=== PATIENT | female | born 1960 | race Caucasian/White ===

== ENCOUNTER → 2019-09-24 16:56 | Outpatient (CLI) | payer OTHER, SELFPAY ==
--- NOTE | 2019-09-24 | DI.RAD.S_ITS ---
PROCEDURE: XR HAND RT MIN 3V INDICATIONS: Pain in right hand TECHNIQUE: 3 views of the hand acquired. COMPARISON: None. FINDINGS: Bones: No fractures or dislocations. Carpal bones are normally aligned. No suspicious bony lesions. Soft tissues: No suspicious soft tissue calcifications. IMPRESSION: No acute osseous abnormality is seen. If symptoms persist, cross-sectional imaging with CT or MRI may be obtained for further evaluation. Dictated by: Jaime Doe M.D. on 09/24/2019 at 17:21 Approved by: Jaime Doe M.D. on 09/24/2019 at 17:23
--- NOTE | 2019-09-24 | DI.MRI.S_ITS ---
PROCEDURE: MR HAND RT WO CON INDICATIONS: Pain in right hand TECHNIQUE: Noncontrast oblique coronal T1 spin echo and T2 fast spin echo with fat saturation, axial and sagittal T2 fast spin echo with fat saturation, through the thumb. COMPARISON: [facility], CR, XR HAND RT MIN 3V, 09/24/2019, 15:58. FINDINGS: Image quality: Excellent. Bones: The visualized osseous structures are normally aligned, without marrow contusions or fractures. There is moderate degeneration at the 1st carpometacarpal joint with cartilage thinning, mild osteophytosis, subchondral edema, and subchondral cystic changes. There is mild periarticular soft tissue edema. A small joint effusion is also noted. There is mild subchondral edema also demonstrated in the 1st metacarpal head at the metacarpophalangeal joint. No suspicious intra-osseous mass lesions. First carpometacarpal joint: On sagittal images, the dorsal radial ligament and posterior oblique ligament appear mildly attenuated in signal but grossly intact. The intermetacarpal ligament between the 1st and 2nd metacarpal bases also appears attenuated signal but grossly intact. On the volar aspect, the deep and superficial layers of the anterior oblique ligament appear grossly intact. First metacarpophalangeal joint: The radial collateral ligament appears intact, along with overlying fibers of the abductor pollicis brevis tendon. The the ulnar collateral ligaments appear intact, along with overlying fibers of the adductor pollicis muscle. The aponeurosis of the adductor pollicis muscle also appears normal. The volar plate appears grossly intact on sagittal images, situated between the radial and ulnar sesamoids. Thenar muscles: The superficial abductor pollicis longus muscle appears within normal limits, with tendon inserting on the radial base of the first proximal phalanx. The opponens pollicis muscle also appears normal, inserting on the first metacarpal shaft. The flexor pollicis brevis muscle appears normal, with tendon inserting on the radial sesamoid and first proximal phalanx. The oblique and transverse heads of the adductor pollicis muscle appear within normal limits. Flexor pollicis longus tendon: The visualized flexor tendons appear intact. The annular pulleys also appear grossly intact. Extensor tendons: The visualized extensor tendons appear intact. Miscellaneous: No ganglion cysts. IMPRESSION: 1. Moderate osteoarthritic changes at the 1st carpometacarpal joint with cartilage thinning, subchondral cystic changes and edema, and osteophytosis. A small joint effusion and periarticular edema are also demonstrated likely representing reactive changes. No discrete bony erosions. 2. Attenuated signal within the ligaments at the 1st carpometacarpal joint likely represent degenerative change. Dictated by: James Chapman M.D. on 09/25/2019 at 11:34 Approved by: James Chapman M.D. on 09/25/2019 at 12:04
== END ==
PROVIDERS: PCP Internal Medicine; Referring Provider Internal Medicine; Visit Provider Internal Medicine
DX: M79.641 Pain in right hand (principal); M25.441 Effusion, right hand
CPT/HCPCS: 73130; 73218

== ENCOUNTER → 2019-10-17 10:43 | Outpatient (CLI) | payer OTHER, SELFPAY ==
[2019-10-18 06:45] LABS: COVID19 Sendout Not Detected (Not Detect)
== END ==
PROVIDERS: PCP Internal Medicine; Visit Provider Nurse Practitioner
DX: Z11.59 Encounter for screening for other viral diseases (principal)
CPT/HCPCS: 87635

== ENCOUNTER → 2020-01-10 09:59 | Outpatient (CLI) | payer OTHER, SELFPAY ==
--- NOTE | 2020-01-10 | DI.MG.S_ITS ---
BILATERAL DIGITAL SCREENING MAMMOGRAM 3D/2D WITH CAD: 01/10/2020 CLINICAL: Routine screening. Comparison is made to exams dated: 10/06/2017 mammogram, 09/02/2016 mammogram, and 12/14/2013 mammogram - outside location. There are scattered fibroglandular elements in both breasts. Current study was also evaluated with a Computer Aided Detection (CAD) system. No significant masses, calcifications, or other findings are seen in either breast. There has been no significant interval change. IMPRESSION: NEGATIVE There is no mammographic evidence of malignancy. A 1 year screening mammogram is recommended. This exam was interpreted at Station ID: [id number]. NOTE: For mammograms, a report in lay terms will be sent to the patient. Approximately 15% of breast malignancies will not be visualized mammographically. In the management of a palpable breast mass, a negative mammogram must not discourage biopsy of a clinically suspicious lesion. Electronically Signed By: Lorna schaefer/herman:01/10/2020 13:10:05 letter sent: Normal Exam ACR BI-RADS Category 1: Negative [id number]
[2020-01-10 12:30] LABS: Add Manual Diff / Slide Review NO; Basophils Absolute Auto 0 /uL (0-100); Basophils Percent Auto 0.9 % (0-2); Eosinophils Absolute Auto 200 /uL (0-450); Eosinophils Percent Auto 4.7 % (2-4); Hematocrit 37.7 % (36-46); Hemoglobin 11.9 g/dL (12.0-16.0); Lymphocytes Absolute Auto 1400 /uL (1100-4500); Lymphocytes Percent Auto 30.9 % (25-40); Mean Corpuscular HGB Conc 31.5 % (30-36); Mean Corpuscular Hemoglobin 29.2 PG (26-34); Mean Corpuscular Volume 92.6 fL (80-100); Monocytes Absolute Auto 300 /uL (0-900); Neutrophils Absolute Auto 2600 /uL (1500-7000); Neutrophils Percent Auto 56.5 % (50-75); Platelet Count 260 X10^3/uL (150-400); Red Blood Cell Count 4.07 X10^6/uL (4.0-5.2); Red Cell Distribution Width 13.9 % (11.6-14.8); White Blood Cell Count 4.6 X10^3/uL (4.5-11.0)
[2020-01-10 12:53] LABS: Alanine Aminotransferase 16 IU/L (<35); Albumin 4.2 g/dL (3.5-5.0); Albumin Globulin Ratio 1.4 (1.0-2.8); Alkaline Phosphatase 69 U/L (38-126); Aspartate Aminotransferase 29 IU/L (14-36); BUN Creatinine Ratio 24.7 (6-22); Bilirubin Total 0.4 mg/dL (0.2-1.3); Blood Urea Nitrogen 23 mg/dL (7-17); C-Reactive Protein Quant 0.6 mg/dL (<1.0); Calcium 8.9 mg/dL (8.4-10.2); Carbon Dioxide 29 mmol/L (22-32); Chloride 106 mmol/L (98-107); Estimated Glomerular Filt Rate > 60.0 mL/min (>60); Globulin 3.1 g/dL (1.7-4.1); Glucose 92 mg/dL (80-110); HEMOLYSIS < 15 (0-50); Potassium 4.3 mmol/L (3.4-5.1); Sodium 141 mmol/L (137-145); Total Protein 7.3 g/dL (6.3-8.2); Uric Acid 4.9 mg/dL (2.5-6.2)
[2020-01-10 12:54] LABS: Rheumatoid Factor < 8.6 IU/mL (<12.0)
[2020-01-10 13:33] LABS: Erythrocyte Sedimentation Rate 13 MM/HR (0-20)
[2020-01-10 16:44] LABS: Vitamin D 25 Hydroxy (D3) 37.4 ng/mL (30.0-100.0)
[2020-01-12 18:37] LABS: CCP Antibodies IgG/IgA 4 units (0-19)
== END ==
PROVIDERS: PCP Internal Medicine; Referring Provider Internal Medicine; Visit Provider Internal Medicine
DX: Z12.31 Encounter for screening mammogram for malignant neoplasm of breast (principal); M85.88 Other specified disorders of bone density and structure, other site; Z78.0 Asymptomatic menopausal state; M18.11 Unilateral primary osteoarthritis of first carpometacarpal joint, right hand; E55.9 Vitamin D deficiency, unspecified; Z90.722 Acquired absence of ovaries, bilateral; Z87.891 Personal history of nicotine dependence
CPT/HCPCS: 36415; 77063; 77067; 77080; 80053; 82306; 84550; 85025; 85651; 86140; 86200; 86430

== ENCOUNTER → 2020-09-28 12:40 | Outpatient (CLI) | payer OTHER, SELFPAY ==
--- NOTE | 2020-09-28 | DI.MRI.S_ITS ---
PROCEDURE: MR KNEE LT WO CON INDICATIONS: Unspecified internal derangement of left knee TECHNIQUE: Noncontrast sagittal PD fast spin echo and T2 fast spin echo with fat saturation, sagittal 3-D FLASH with fat saturation; coronal T1 spin echo and PD fast spin echo with fat saturation, and axial PD fast spin echo with fat saturation through the knee. COMPARISON: [facility], CR, XR KNEE 4+ VIEWS LEFT, 06/24/2020, 13:34. FINDINGS: Image quality: Excellent. Menisci: There is horizontal tear involving the body and posterior horn of the medial meniscus. The lateral meniscus is normal morphology and internal signal. The meniscal root ligaments appear intact. Cruciate ligaments: The anterior and posterior cruciate ligaments appear intact. Medial structures: The medial collateral ligament appears intact. The semimembranosus tendon insertions and meniscocapsular junction appear intact. Visualized portions of the pes anserinus tendons appear normal. No abnormal bursal fluid. Lateral structures: The lateral collateral ligament, long and short heads of the biceps femoris tendon appear intact. The popliteus tendon appears normal. Iliotibial band appears normal. Anterior structures: The quadriceps and patellar tendons appear intact. Patellar alignment is normal. No femoral trochlear dysplasia or ventral trochlear prominence. There is mild edema in the infrapatellar fat pad in the medial aspect. Bones and cartilage: No bone marrow contusions or fractures. There is tricompartmental chondral malacia, most pronounced in the medial femorotibial compartment. There are full-thickness cartilage fissures in the medial femoral condyle and medial facet of patella, likely reactive. Subchondral edema in the medial femoral condyle is seen. Joint space: There is small knee joint fluid. There is a moderate Rosario's cyst. Normal appearing synovial plicae are incidentally noted. IMPRESSION: 1. Horizontal tear of the medial meniscus involving the body and posterior horn. 2. Mild edema in the infrapatellar fat pad, suggesting infrapatellar fat pad impingement. 3. Tricompartmental chondral malacia, most pronounced in the medial femorotibial compartment. There are full thickness cartilage fissures in the medial femoral condyle, as well as the medial patellar facet. 4. Small knee joint effusion. 5. A moderate sized Rosario cyst. Dictated by: Alka Swift M.D. on 09/29/2020 at 8:25 Approved by: Alka Swift M.D. on 09/29/2020 at 11:37
== END ==
PROVIDERS: PCP Internal Medicine; Referring Provider Orthopaedic Surgery Adult Reconstructive Orthopaedic Surgery; Visit Provider Orthopaedic Surgery Adult Reconstructive Orthopaedic Surgery
DX: S83.242A Other tear of medial meniscus, current injury, left knee, initial encounter (principal); M94.262 Chondromalacia, left knee; M71.22 Synovial cyst of popliteal space [Baker], left knee; M25.462 Effusion, left knee
CPT/HCPCS: 73721

== ENCOUNTER → 2020-10-07 13:20 | Outpatient (CLI) | payer OTHER, SELFPAY ==
[2020-10-07 13:55] LABS: Add Manual Diff / Slide Review NO; Basophils Absolute Auto 0 /uL (0-100); Basophils Percent Auto 0.9 % (0-2); Eosinophils Absolute Auto 300 /uL (0-450); Eosinophils Percent Auto 6.8 % (2-4); Hematocrit 35.8 % (36-46); Hemoglobin 11.6 g/dL (12.0-16.0); Lymphocytes Absolute Auto 1800 /uL (1100-4500); Mean Corpuscular HGB Conc 32.5 % (30-36); Mean Corpuscular Hemoglobin 29.8 PG (26-34); Mean Corpuscular Volume 91.7 fL (80-100); Monocytes Absolute Auto 400 /uL (0-900); Monocytes Percent Auto 8.3 % (3-14); Neutrophils Absolute Auto 2300 /uL (1500-7000); Platelet Count 230 X10^3/uL (150-400); Red Cell Distribution Width 14.1 % (11.6-14.8); White Blood Cell Count 4.9 X10^3/uL (4.5-11.0)
== END ==
PROVIDERS: PCP Internal Medicine; Referring Provider Orthopaedic Surgery Adult Reconstructive Orthopaedic Surgery; Visit Provider Orthopaedic Surgery Adult Reconstructive Orthopaedic Surgery
DX: Z01.818 Encounter for other preprocedural examination (principal); Z01.812 Encounter for preprocedural laboratory examination
CPT/HCPCS: 36415; 85025; 93005

== ENCOUNTER → 2021-04-20 13:07 | Outpatient (CLI) | payer OTHER, SELFPAY ==
[2021-04-20 13:28] LABS: Add Manual Diff / Slide Review NO; Basophils Absolute Auto 0 /uL (0-100); Eosinophils Absolute Auto 200 /uL (0-450); Hematocrit 36.1 % (36-46); Hemoglobin 11.8 g/dL (12.0-16.0); Lymphocytes Absolute Auto 1600 /uL (1100-4500); Lymphocytes Percent Auto 33.7 % (25-40); Mean Corpuscular HGB Conc 32.7 % (30-36); Mean Corpuscular Hemoglobin 29.5 PG (26-34); Mean Corpuscular Volume 90.1 fL (80-100); Monocytes Absolute Auto 300 /uL (0-900); Monocytes Percent Auto 6.7 % (3-14); Neutrophils Absolute Auto 2500 /uL (1500-7000); Neutrophils Percent Auto 54.6 % (50-75); Platelet Count 228 X10^3/uL (150-400); Red Blood Cell Count 4.01 X10^6/uL (4.0-5.2); Red Cell Distribution Width 14.1 % (11.6-14.8); White Blood Cell Count 4.6 X10^3/uL (4.5-11.0)
[2021-04-20 13:39] LABS: Hemoglobin A1C% w Est Avg Glu 5.5 % (4.0-6.0)
[2021-04-20 14:03] LABS: BUN Creatinine Ratio 20.4 (6-22); Blood Urea Nitrogen 21 mg/dL (7-17); Calcium 9.3 mg/dL (8.4-10.2); Carbon Dioxide 30 mmol/L (22-32); Chloride 106 mmol/L (98-107); Estimated Glomerular Filt Rate 54.5 mL/min (>60); Glucose 69 mg/dL (80-110); HEMOLYSIS < 15 (0-50); Potassium 4.2 mmol/L (3.4-5.1); Sodium 141 mmol/L (137-145)
[2021-04-20 15:44] LABS: Appearance Urine UA CLEAR; Bilirubin Urine UA NEGATIVE (NEGATIVE); Color Urine UA YELLOW; Glucose Urine UA NEGATIVE (Negative); Ketones Urine UA NEGATIVE (NEGATIVE); Leukocyte Esterase Urine UA TRACE (NEGATIVE); Nitrite Urine UA NEGATIVE (Negative); Occult Blood Urine UA NEGATIVE (Negative); Protein Urine UA NEGATIVE (Negative); Specific Gravity Urine UA 1.015 (1.000-1.035); Urobilinogen Urine UA 0.2 E.U./dL (0.2)
[2021-04-20 16:03] LABS: pH Urine UA 6.5 (4.5-8.0)
[2021-04-20 16:06] LABS: RBC Urine 0-1/HPF (0-5/HPF); Squamous Epithelial Cell Urine 0-1 /HPF (0-5/HPF); WBC Urine 0-1/HPF (0-5/HPF)
[2021-04-20 16:07] LABS: Bacteria Urine None Seen; Culture Indicated Urine Cult Not Indicated
== END ==
PROVIDERS: PCP Internal Medicine; Referring Provider Orthopaedic Surgery; Visit Provider Orthopaedic Surgery
DX: Z01.812 Encounter for preprocedural laboratory examination (principal); R73.9 Hyperglycemia, unspecified; N39.0 Urinary tract infection, site not specified
CPT/HCPCS: 36415; 80048; 81001; 83036; 85025

== ENCOUNTER → 2021-06-02 10:33 | Outpatient (CLI) | payer OTHER, SELFPAY ==
[2021-06-02 11:28] LABS: COVID19 -Nasal RAPID Negative (Negative)
== END ==
PROVIDERS: PCP Internal Medicine; Visit Provider Family Medicine Sleep Medicine
DX: Z20.822 Contact with and (suspected) exposure to COVID-19 (principal)
CPT/HCPCS: 87635; C9803

== ENCOUNTER 2021-06-05 14:58 | Observation (INO) | payer OTHER, SELFPAY ==
[2021-05-27 09:27] VITALS: BMI 25.9
[2021-06-04] VITALS (18 sets, daily range): BP systolic 89–164; BP diastolic 49–84; PULSE 58–84; RESP 12–18; TEMP 35.9–37.3; O2SAT 95–100; BMI 25.9
--- NOTE | 2021-06-04 06:00 | DI.RAD.S_ITS ---
PROCEDURE: XR KNEE LT 1TO2V INDICATIONS: TKA TECHNIQUE: 2 view(s) of the knee acquired. COMPARISON: None. FINDINGS: Bones: Patient is status post knee joint arthroplasty. Hardware components are in expected positions. Visualized bony structures are intact. Soft tissues: Overlying postoperative changes are noted. IMPRESSION: Postop changes from left total knee arthroplasty with anatomic left knee alignment. Dictated by: Jerel Cano M.D. on 06/04/2021 at 14:17 Approved by: Jerel Cano M.D. on 06/04/2021 at 14:17
[2021-06-04] MEDS: VANCOMYCIN 1,000 MG/200 ML PIGGYBACK 200 MG IV (09:55)
[2021-06-04] MEDS: ACETAMINOPHEN 325 MG TABLET 975 MG PO (09:58)
[2021-06-04] MEDS: CELECOXIB 200 MG CAPSULE PO (09:59)
[2021-06-04] MEDS: GABAPENTIN 100 MG CAPSULE PO (10:32)
[2021-06-04] MEDS: MORPHINE ER 15 MG TABLET PO ×2 (10:32→21:20)
[2021-06-04] MEDS: LACTATED RINGERS 1,000 ML 42 ML IV ×2 (11:01→12:55)
--- NOTE | 2021-06-04 11:06 | PM.PREOP ---
Pre-operative Note COVID-19 COVID-19 status: Negative Interval Note History & Physical reviewed/Exam performed by Physician: Yes Changes to H&P: No
--- NOTE | 2021-06-04 11:08 | P.OP_ITS ---
Operative Date/Time/Diagnoses Date of procedure: 06/04/21 Time of procedure: 11:30 Pre-op diagnosis: left knee OA probable early RSD Post-op diagnosis: same Procedure & Clinicians Procedure: Left total knee arthroplasty Same procedure as scheduled: Yes Indications: The patient has had progressively worsening left knee pain with radiographic changes consistent with arthritis. Non-operative management has failed and the patient has requested total knee replacement. The risks, benefits and alternatives to surgery were discussed with the patient prior to proceeding. Risks discussed included, but were not limited to, failure to relieve pain, stiffness, infection, nerve damage, deep venous thrombosis, pulmonary embolism, stroke, coma, heart attack, permanent paralysis and , as well as the potential need for eventual revision of the prosthetic. Surgeon: Amanda Islas Store Lead: Nomi Yarbrough Anesthesia Type: General, Spinal and Peripheral nerve block Operative Notes Findings: Left knee osteoarthritis with articular cartilage full-thickness articular cartilage loss on the medial femoral condyle and trochlear groove, good range of motion instability, adequate bone Closure Type: primary Prosthetic devices, grafts, tissues, transplants, or devices: Islas and nephew size 4 femur, size 3 tibia, 35 x 7-1/2 mm patella, size 10 poly Applied: drain(s) Estimated Blood Loss (mL): 250 Blood products transfused: none Tourniquet time (min): 60 Procedure in detail: The patient was seen in the pre-operative area, where the patient identified the left knee as the operative site and this was marked with my initials. The patient received pre-operative antibiotics, and was taken to the operating room and placed on the operative table in the supine position. After satisfactory anesthesia, a organisation and methods analyst out was performed. The left leg was encircled with a tourniquet about the proximal thigh, and the leg was prepared from the toes to the tourniquet with ChloroPrep in the usual fashion and draped through sterile drapes. The leg was elevated and exsanguinated with Eschmark bandage and the tourniquet inflated to [250] mmHg pressure. The knee was approached through an approximately 18 cm incision centered over the patella and carried into the knee through a medial parapatellar arthrotomy. A portion of the medial and lateral meniscus was resected. Soft tissue was care fully mobilized around the patella the patella was measured with a caliper. Bone was resected from the patella and the patellar height was reconstituted with up an appropriate sized patellar component. A cover was then placed on the patella. A small amount of additional medial and lateral meniscus was resected. The distal femur was cut at 5?. A [+2] cut was used. It looked like an appropriate distal femoral cut and the cut was made without difficulty. An extramedullary guide was used for the tibial cut. 10 mm was resected off the least affected side.The tibia was prepared. The rotation was assessed. The patient was placed in extension residual medial and lateral meniscus as well as any residual bone was carefully resected. [No] additional tibia was resected. Hemostasis was achieved especially posteriorly. Additional local was injected into the posterior capsule. The extension gap was assessed and additional releases for gap balancing were performed as necessary. It was checked with the gap scientific informatics project leader. The femoral component was trial was placed and the notch was finished. The rotation was assessed and the appropriate size femoral guide was placed on the distal femur and finishing cuts were made. There is no evidence of notching. The anterior, posterior and chamfer cuts were then made. The posterior osteophytes and soft tissues were then removed. The posterior capsule was injected with part of a mixture of 60 ml 0.25% Marcaine mixed with 20 ml Exparel for post operative pain control. The remainder of this mixture was injected into the capsule and subcutaneous tissues during cement curing. The tibial and femoral components were then placed and the knee placed through a range of motion. Range of motion was [0-130], with good stability throughout the range. The trials were then removed, and the tibia was finished. The bone was prepared with pulsatile lavage, and dried with a sponge. Cement was applied and the final prosthetics placed. Excess cement was removed during and after cement curing. A brief Betadine soak was performed. After confirming there was no extruded cement posteriorly, the final tibial insert was placed. The knee was copiously irrigated and the tourniquet deflated. Hemostasis was obtained with the Bovie. A drain was placed and brought out superolaterally. The capsule was closed with interrupted nonabsorbable suture. The subcutaneous layer was closed with barbed sutures, and the skin with a running 3-0 V-Lock suture and Surgical glue. An Aquacel Ag dressing was applied and the patient was taken to recovery having tolerated the procedure well. Complications: none Post-operative Condition: stable Disposition: Acute Care Plan for aftercare: The patient will be maintained on a standard total knee replacement protocol with weight bearing as tolerated. The patient will receive aspirin and sequential compression devices for DVT prophylaxis. The patient will be discharged home when safe for the home environment.
--- NOTE | 2021-06-04 11:13 | SUR.PREOP ---
Block start time [1115] . Monitoring initiated and maintained throughout procedure. Oxygen and medications given per anesthesiologist instructions. Patient remained stable throughout procedure, no adverse reactions noted. Block end time [1130].
[2021-06-04] MEDS: TRANEXAMIC ACID 1,000 MG in SODIUM CHLORIDE 0.9% 100 ML 200 ML IV ×2 (12:07→13:19)
--- NOTE | 2021-06-04 12:26 | SUR.OPER ---
Supine on padded OR bed. Pillow under head, arms secured on padded armboards <90 degree abduction. Safety belt across torso. Non-operative leg secured with tape over blanket over lower leg. Operative leg secured in [employer] positioner. Foam padded brace at thigh of operative leg.
[2021-06-04] MEDS: BUPIVACAINE 0.25% (PF) 60 ML, EPINEPHrine 0.3 MG INJ (12:50)
[2021-06-04] MEDS: BUPIVACAINE LIPOSOME 266 MG/20 ML VIAL INJ (13:03)
[2021-06-04] MEDS: MEPERIDINE 50 MG/ML INJ 25 MG IV (14:25)
[2021-06-04] MEDS: LACTATED RINGERS 1,000 ML 100 ML IV ×2 (16:33→18:56)
[2021-06-04] MEDS: HYDROMORPHONE 2 MG TABLET PO (16:43)
--- NOTE | 2021-06-04 16:56 | PC.NURSE ---
Pt arrived at 1447 from PACU Alert/oriented. SpO2 98% RA Aquacell/ alecia wrap Dsg to left knee CDI Med w/Dilaudid 2mg po at 1630 w/fair relief. Pt assisted to chair w/o incidence. IVF LR infusing @ 100cc/hr via pump into left wrist area w/o incidence. Call light w/in reach, bed alarm on for pt safety. Continue w/plan of care.
[2021-06-04] MEDS: CEFAZOLIN 2 GM/20 ML SYRINGE IV (18:54)
[2021-06-04] MEDS: DULOXETINE 30 MG CAPSULE 60 MG PO (21:20)
[2021-06-04] MEDS: ASPIRIN EC 81 MG TABLET PO (21:21)
[2021-06-04] MEDS: DOCUSATE 100 MG CAPSULE PO (21:21)
[2021-06-04] MEDS: TOPIRAMATE 25 MG TABLET PO (21:21)
[2021-06-04] MEDS: ACETAMINOPHEN 325 MG TABLET 650 MG PO (21:21)
[2021-06-04] MEDS: HYDROMORPHONE 0.5 MG INJ 0.2 MG IV (23:16)
[2021-06-04] MEDS: ONDANSETRON 4 MG/2 ML INJ IV (23:16)
[2021-06-05] VITALS: BP 165/96; PULSE 68; RESP 18; TEMP 36.6; O2SAT 100
[2021-06-05] MEDS: HYDROMORPHONE 2 MG TABLET PO ×5 (02:20→18:29)
[2021-06-05] MEDS: CEFAZOLIN 2 GM/20 ML SYRINGE IV (02:21)
[2021-06-05] MEDS: SODIUM CHLORIDE 0.9% FLUSH 10 ML IV ×3 (03:14→21:37)
[2021-06-05 06:00] VITALS: BP 129/79; PULSE 72; RESP 14; TEMP 37.3; O2SAT 96
[2021-06-05 06:10] LABS: Hematocrit 32.3 % (36-46); Hemoglobin 10.7 g/dL (12.0-16.0)
--- NOTE | 2021-06-05 07:51 | PM.PNPO.1 ---
Subjective Subjective Date Patient Seen: 06/05/21 Time Patient Seen: 07:52 Interval history: Patient is complaining of moderate to severe pain in her left knee. She suffers from complex regional pain syndrome and is on baseline long-acting morphine and Dilaudid for breakthrough pain. She notes controlling her pain well in the hospital. She denies any new numbness or tingling, she just has her baseline abnormal sensations. She does complain of some nausea with standing. No lightheadedness or dizziness, no fevers, chills, night sweats. Exam Vital Signs (past 8 hours): - 06/05/21 00:00 06/05/21 06:00 Temperature 97.9 F 99.1 F Pulse Rate 68 72 Respiratory Rate 18 14 Blood Pressure 165/96 H 129/79 Pulse Oximetry 100 96 Oxygen Delivery Method Room Air Oxygen Flow Rate 0 Narrative Exam Narrative: Pleasant 60-year-old female, resting comfortably in her chair, no acute distress. Dressing is clean, dry, intact. Her drain has put out 140 cc yesterday and 100 cc today in the drain site has some serosanguineous drainage on the bandage. Bilateral lower extremity: Motor functions are grossly intact, sensation: She is hypersensitive to touch especially on the right lower extremity as compared to the left. Calves are soft and non tender to palpation. Objective Labs Result Diagrams: 06/05/21 05:40 Labs: Laboratory Results - last 24 hr 06/05/21 05:40 Hgb 10.7 L Hct 32.3 L PFSH Medical History Anesthesia complication Anxiety CRPS (complex regional pain syndrome type I) Easy bruisability Heartburn Miscarriage Surgical History History of arthroscopy of right shoulder History of bunionectomy of right great toe History of hysterectomy Hx of arthroscopy of left knee Hx of dilation and curettage Hx of laminectomy Social History household members: spouse and family Smoking Status: Former smoker alcohol intake: former Assessment & Plan Post-op Postoperative Procedures: Procedures Operation Date: 06/04/21 11:30 Actual Procedure Side Surgeon p Total Knee Arthroplasty Left Amanda Islas MD Postoperative day: 1 Postoperative status narrative: -mobilize with PT. weight-bearing as tolerated with front wheel walker -continue with multimodal pain management. Patient has a history of complex regional pain syndrome. -aspirin 81 mg twice daily x6 weeks for DVT prophylaxis -drain: Checking with Dr. Islas if we are okay to remove drain after PT this morning, or if she would like to take it off suction and placed to gravity? -DC: Home today versus tomorrow. I will recheck on the patient this afternoon Quality VTE Deep Vein Thrombosis/Pulmonary Embolism Present on Admission: No
[2021-06-05] MEDS: TOPIRAMATE 25 MG TABLET PO ×2 (08:44→21:37)
[2021-06-05] MEDS: DOCUSATE 100 MG CAPSULE PO ×2 (08:44→21:37)
[2021-06-05] MEDS: ACETAMINOPHEN 325 MG TABLET 650 MG PO ×3 (08:45→21:36)
[2021-06-05] MEDS: ASPIRIN EC 81 MG TABLET PO ×2 (08:45→21:37)
[2021-06-05] MEDS: DULOXETINE 30 MG CAPSULE 60 MG PO ×2 (08:45→21:36)
[2021-06-05] MEDS: MORPHINE ER 15 MG TABLET PO ×3 (08:45→21:36)
[2021-06-05 08:48] VITALS: BP 110/64; PULSE 84; RESP 18; TEMP 37.7; O2SAT 95
--- NOTE | 2021-06-05 09:31 | PC.NURSE ---
Addendum entered by Savannah Lamb R.N. 06/05/21 18:10: Patient to be medicated shortly, she ate up in the chair and is comfortable and free of nausea at this time. Addendum entered by Savannah Lamb R.N. 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 She had an emesis earlier. Patient will stay another night as she is not feeling well. just went home. Original Note: Patients dressing to her l.knee with aquacel and alecia wrap. She does have some discomfort to that knee. Leg leg is slightly swollen with 1+ edema, not pitting. CMS wnl and ppx2. To give patient some po pain medications as she will be working with physical therapy soon. She has a hemovac that is putting out bloody drainage.
[2021-06-05] MEDS: ONDANSETRON 4 MG ODT PO (10:03)
--- NOTE | 2021-06-05 10:15 | PT.IIE ---
Current Diagnoses Unilateral primary osteoarthritis, left knee (06/04/21) Surgery Performed Operation Date: 06/04/21 11:30 Actual Procedures p Total Knee Arthroplasty(Left) - Amanda Islas MD Medical History (Last Reviewed 06/05/21 @ 07:54 by Leeann Prieto PA-C) Anesthesia complication Anxiety CRPS (complex regional pain syndrome type I) Easy bruisability Heartburn Miscarriage Physical Therapy Inpatient Evaluation/Re-Eval M1 PT/OT-IP Prior Functional Status Start: 06/05/21 12:55 Freq: NEEDED Status: Active Protocol: Document 06/05/21 10:15 AB (Rec: 06/05/21 13:16 AB [id number]) Medical Review Prior Functional Status Medical History Reviewed Yes Communication able to make needs known Mobility and Gait pt stated that she is independent with all mobilities and ambulation without AD Social History Household Members spouse,family Living Arrangements House Number of Floors (Floors) Two Floors Number of Stairs To Enter/Railing? 3 steps L rail to enter pt stays on main level of the house Home Environment High Toilet,Walk in Shower, Built-In Shower Seat Home Equipment Four Wheel Walker,Shower Seat with Backrest,Hand Held Shower ,Grab Bars In Shower Additional Social History Comment pt lives with spouse mau who can assist pt and can be off work to assist pt has an adjustable bed M2 PT-IP Current Condition Start: 06/05/21 12:55 Freq: NEEDED Status: Active Protocol: Document 06/05/21 10:15 AB (Rec: 06/05/21 13:16 AB [id number]) Physical Therapy Current Condition Current Condition Evaluation Date 06/05/21 Treatment Diagnosis s/p L TKA; difficulty in walking Onset Date 06/04/21 M3 PT-IP Subjective Start: 06/05/21 12:55 Freq: NEEDED Status: Active Protocol: Document 06/05/21 10:15 AB (Rec: 06/05/21 13:16 AB [id number]) Subjective Physical Therapy Visit Type Type Initial Evaluation Visit Start Time 10:15 Visit Stop Time 11:06 Total Visit Minutes 51 Number of TAPE RECORDER REPAIRER Visits 0 Physical Therapy Visit Comments Patient Comments pt is agreeable to do PT Therapy Pain Assessment Pain When Pain Assessed At Rest Pain Present Pain Present Pain Reported Location Left Knee Intensity 5 Scale Used increases >10 with mobility Pain Behaviors Crying,Facial Grimacing, Guarding Pain Management Techniques Distraction,Modification of Treatment,Re-positioning, Timing of Activity with Medications M4 PT-IP Mobility and Gait Start: 06/05/21 12:55 Freq: NEEDED Status: Active Protocol: Document 06/05/21 10:15 AB (Rec: 06/05/21 13:16 AB [id number]) PT-Bed Mobility Assessment Supine to Sit Supine to Sit Standby Assistance Sit to Supine Sit to Supine Standby Assistance PT-Transfer Assessment Sit to and From Stand Sit to and from Stand Minimal Assistance,1 Person Assistance,Use of Upper Extremities Equipment Transfer Assistive Device Gait Belt,Front Wheeled Walker Orthotic/Prosthetic Devices or Brace: No Transfers Transfer Destination Bed Transfer Technique ambulated Transfer Ability Level of Assist Minimal Assistance,1 Person Assistance,Use of Upper Extremities Comments Mobility Comments pt sitting on chair and spouse in room. agreed to do PT. BP in sittin/80. completed sit to stand min A and cues and ambulated ~ 5 ft using FWW min A and has to sit down due to c/o increase knee pain and is nauseated. pt sat on EOB. BP checked: 156/76. completed sit<>supine SBA. caregiver training initiated. educated spouse on how to use safety belt and how to assist pt. spouse was ablet o put safety belt on pt and assisted pt with sit to stand from EOB min A and pt ambulated with spouse using FWW min A and cues ~ 10 ft and unable to ambulate farther due to c/o increase pain and nausea. pt sat on chair. pt just wants to rest for now. educated pt to put in resting stations/ chairs for pt to sit on for safety at home and spouse agreed. positioned pt on chair. call light and table placed within reach. caregiver training set up for 130 pm. Gait Assessment Gait Gait Assistance Required: Minimum Assistance Distance (Feet) 15 Able to Maintain Weight Bearing Status Yes During Gait Assistive Devices Assistive Device Gait Belt,Front Wheeled Walker Orthotic/Prosthetic Devices or Brace: No Gait Deviations General Gait Pattern Antalgic,Decreased Stride Length,Decreased Feet Clearance,Step-to Gait Factors Limiting Gait Function Factors Limiting Gait Function Decreased Activity Tolerance, Decreased Strength,Limited Range of Motion,Pain,Poor Balance,Poor Safety Awareness PT-Balance Assessment Sitting Balance and Reactions Static Sitting Balance Ability Good Dynamic Sitting Balance Ability Good Standing Balance and Reactions Static Standing Balance Ability Fair Dynamic Standing Balance Ability Fair Device Used FWW M5 PT-IP Objective Assessments Start: 06/05/21 12:55 Freq: NEEDED Status: Active Protocol: Document 06/05/21 10:15 AB (Rec: 06/05/21 13:16 AB [id number]) Orientation Orientation/Cognition Level of Alertness Alert Orientation Name,Age,Birthday,Month,Date, Year,Day of Week,Place, Situation Language Function Ability No Deficits Noted Safety Awareness Understands Safety Issues Memory Description No Deficits Noted Gross Range of Motion Lower Extremity ROM Assessment Left Impaired Impairments L knee flexion: ~ 50 deg Strength Lower Extremity Strength Assessment Left Impaired Knee 3+/5 Coordination Assessment Gross Coordination Gross Coordination WNL Sensation Assessment Sensation Gross Sensation WNL Muscle Tone Muscle Tone WNL Yes M6 PT-IP Treatment Start: 06/05/21 12:55 Freq: NEEDED Status: Active Protocol: Document 06/05/21 10:15 AB (Rec: 06/05/21 13:16 AB [id number]) Physical Therapy Treatment Education Education Provided Precautions,Weight Bearing Status,Post-Op Packet,Safety M7 PT-IP Assessment and Plan Start: 06/05/21 12:55 Freq: NEEDED Status: Active Protocol: Document 06/05/21 10:15 AB (Rec: 06/05/21 13:16 AB [email or web address]) PT Summary Assessment and Plan Potential Rehabilitation Potential Fair Status of Condition at Evaluation Evolving Summary Impairments Pain,ROM,Strength,Balance, Coordination,Sensation,Tone, Cognition,Bed Mobility, Transfers,Gait,Activity Tolerance Assessment Summary pt requirng min A with ambulation using FWW but unable to ambulate too much due to c/o increase pain. pt with dx complex regional pain sydrome affecting pain management and function. caregiver training initiated but further training is needed and set up for the afternoon at 130 pm. pt also has a 4WW and no FWW but spouse stated that he can get a FWW for pt. will continue to assess progress. pt needs to complete stair climbing training prior to d/c. pt also will need HHPT to improve strength and mobility. Goals Bed Mobility Goal Independent Transfer Goal Independent,Front Wheeled Walker,Four Wheeled Walker Gait Goal Independent,Front Wheel Walker ,Four Wheel Walker Gait Distance 200 Other Goals up/down 3 steps L rail ascending CGA Days to Meet Goals 5 Frequency of Treatment Frequency Of Treatment Twice a Day Treatment Plan Physical Therapy Treatment Plan Bed Mobility Training,Transfer Training,Gait Training, Therapeutic Exercise,Balance Retraining,Post Op Education, Discharge Planning,Hot or Cold Pack,Neuromuscular Re-ed, Coordination Retraining,Manual Therapy Weight Bearing Status Weight Bearing Status Weight Bear as Tolerated Allowed Weight Bearing Amount (enter % LLE WBAT or #) (%) Recommendations To Nursing Amount of Assist Needed 1 Person Assist Discharge Recommendations PT Discharge Recommendations Home with 27/09 Assist Available,Home Health Equipment Needed for Home Before FWW if not safe with 4WW Discharge Transportation Needs at Discharge Private Vehicle
--- NOTE | 2021-06-05 11:19 | CM.DANOTE ---
Addendum entered by PAMELA Gibson 06/05/21 14:18: ADD: Per PT, spouse was able to assist during initial eval and further CG training set up with spouse again around 1300 and per Terrence MARTINO, pt medically stable to d/c later today pending progress with PT. Per RN, pt somewhat nauseous now this afternoon and pt had to lay down, unclear if pt will be stable for d/c home tonight vs tomorrow. BF Original Note: Patient is a 60 yo female who was admitted on 06/04/21 for LTKA. Pt has [employer] for insurance and his PCP is Dr. Cody Strong. EMR was reviewed. Per MD, pt has chronic pain at baseline and tolerated procedure well. Per Terrence MARTINO, pt to work with PT today and then possibly drain to be removed after that towards determining d/c home later today vs tomorrow. Per RN, pt has fair amount of pain and not feeling the best. SW met bedside with pt and spouse and explained role and they confirm they live in [place] and pt is independent at baseline with ADL's. Spouse is pt's DPOA. Spouse works but states he can take a week off from work to help if needed but has today and the weekend off to assess pt's needs after d/c. Pt denies any hx of HH or SNF but confirms she is already established with outpt PT and has an appointment set up for next week already and currently does not anticipate any further needs but still needs to work with PT and does have 3 stairs to enter her home. PT arrived bedside to begin initial eval towards d/c recommendations, SW will follow up with pt after pending recommendations. Plan: SW to follow closely after PT initial eval right now and recommendations to confirm safe plan of home with spouse assist and outpt PT and any further identified needs. PAMELA Gibson Discharge Planning/Care Management CM Discharge Assessment Start: 06/05/21 11:18 Freq: Status: Active Protocol: Document 06/05/21 11:18 BF (Rec: 06/05/21 11:19 [id number]) Discharge Planning Assessment Assigned Center Receptionist PAMELA Puri DPOA/Assigned Designee Name spouse Luis Fernando Contact Information [phone] Advance Directives? No Advance Directives on File No History Provided By Patient,Significant Other, Medical Record Has Patient been admitted in last 30 No days? Prior Living Arrangements House Household Members spouse,family Type of transporation used prior to Drives own vehicle admit Independent with ADL's Yes Is patient alert and oriented? Yes Caregiver for Another No Patient/Family Preference OP PT Therapy Comment Pending PT eval and recommendations Barriers to Discharge No Discharge Plan Home Community Services Physical Therapy Transportation Arrangement Spouse bedside and can transport at d/c Referrals Initiated None needed Additional Comment Pending PT eval Whiteboard Updated in Patient Room with Yes name and ext. # of Center Receptionist Review Status In Process Please Provide Date Initial DC 06/05/21 Assessment Was Performed Next Review Type Continued Stay Review Pre-Anesthesia Assessment Start: 05/27/21 09:27 Freq: Status: Active Protocol: Document 05/27/21 09:27 [facility] (Rec: 05/27/21 10:39 [facility] [id number]) Pre-Anesthesia Assessment Patient Information Reviewed Via Phone Assessment Assessment Completed With Patient Diagnostic Results BMP/CMP,CBC,EKG Comment Labs @ 04/20/21, ECG @ 2020, COVID screen @ Primary Care Provider Anthony Quezada Seen Specialist in Last 12 Months Yes Specialist Seen Orthopedist Primary Language Setswana Miller First Required No Height 166.37 cm Weight 71.668 kg Body Mass Index (BMI) 25.9 Hearing Ability Normal Visual Assist Glasses Dentition Type Teeth, Natural Present,Teeth, Missing Barriers to Learning None Hx Anesthesia Reactions Yes: I've wokenup during surgery, allergies to multiple narcotics. 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 No Does patient have STEWART/SOB No Hx Sleep Apnea No Currently Taking a Beta Vahid No Can You Climb a Flight of Stairs Without Yes SOB Hx Chest Pain No Hx SOB No Hx Syncope or Dizziness No Anti-Coagulant Therapy No Has a Level Vial Marker No Cardiac Testing No Hx Pacemaker/ICD No Pacemaker Rep Required? No Cardiac Clearance Received Not Applicable Diet Type At Home Regular dysphagia No Gastrointestinal Symptoms Constipation Urinary Catheter Present No Hx Urinary Self Catheterization No Diabetes No Patient No Lactating No Hx Drug Resistant Organism No Presence of External or Internal Medical Yes: Left great toe Devices Have you had any close contact with No someone diagnosed with COVID-19? Received a COVID vaccine? Yes: Needs to get booster Received all doses? No Marital Status Lives With spouse,family Prior Living Arrangements House Number of Floors (Floors) Two Floors Support System Parent(s),Spouse Does the Patient Have Assistance After Yes Surgery Patient Discharge Plan Description Return Home Comment Pt advised possible same day surgery Feels Safe in Current Environment Yes Been Physically Hurt or Threatened By a No Person in Current Environment Do you have thoughts of harming yourself None or others? Are you currently considering suicide? No Do you have a plan to hurt yourself or No Plan others? Do You Have Any Spiritual Beliefs That No May Affect Your HC Choices? Do You Have Any Cultural Practices That No May Affect Your HC Choices? Comment Hong Who Can We Speak to About Patient's Care Family, friends Identifying Code for Release of Patient Declines to issue Information Health Care Proxy/Next of Kin Luis Fernando () Health Care Proxy Emergency Contact Name Luis Fernando () Emergency Contact Advance Directives? No Power of Meal Grinder Tender No PAC Instructions Do not shave/clip surgical site,Durable medical equipment ,Medications to take/avoid, Nasal antibiotic,No ETOH/ petroleum product on skin DOS, NPO,Post-op transportation,Pre -surgical wash,Sensory aids, Sturdy shoes/comfortable clothes,Do not bring valuables and remove jewelry
[2021-06-05 12:03] VITALS: BP 133/76; PULSE 72; RESP 18; TEMP 37.3; O2SAT 96
--- NOTE | 2021-06-05 13:46 | P.DS_ITS ---
History of Present Illness History of Present Illness Date Patient Seen: 06/05/21 Time Patient Seen: 13:46 Chief complaint: Left knee pain s/p left TKA Narrative: Please see prior progress note from today Discharge Providers Provider Discharge Date: 06/05/21 Primary care physician: Cody Strong MD Consults: 06/04/21 06:00 Consult to Anesthesiology Routine Comment: Consulting Provider: Anesthesiologist Reason for consultation: Regional block for post operative pain control 06/04/21 16:17 Consult to Discharge Planning Routine Comment: Consult to Physical Therapy Evaluate & Treat Comment: Physician Instructions: postop TKA protocol Consult to Respiratory Therapy Evaluate & Treat Comment: Physician Instructions: Evaluate and treat Discharge provider: Leeann Prieto PA-C Summary Hospital Course Discharge Diagnosis: left knee OA probable early RSD Hospital Course: Operative Date/Time/Diagnoses Date of procedure: 06/04/21 Time of procedure: 11:30 Procedure & Clinicians Procedure: Left total knee arthroplasty Same procedure as scheduled: Yes Indications: The patient has had progressively worsening left knee pain with radiographic changes consistent with arthritis. Non-operative management has failed and the patient has requested total knee replacement. The risks, benefits and alternatives to surgery were discussed with the patient prior to proceeding. Risks discussed included, but were not limited to, failure to relieve pain, stiffness, infection, nerve damage, deep venous thrombosis, pulmonary embolism, stroke, coma, heart attack, permanent paralysis and , as well as the potential need for eventual revision of the prosthetic. Surgeon: Amanda Islas Photo Mask Inspector: Nomi Yarbrough Anesthesia Type: General, Spinal and Peripheral nerve block Operative Notes Findings: Left knee osteoarthritis with articular cartilage full-thickness articular cartilage loss on the medial femoral condyle and trochlear groove, good range of motion instability, adequate bone Closure Type: primary Prosthetic devices, grafts, tissues, transplants, or devices: Islas and nephew size 4 femur, size 3 tibia, 35 x 7-1/2 mm patella, size 10 poly Applied: drain(s) Estimated Blood Loss (mL): 250 Blood products transfused: none Tourniquet time (min): 60 Status at Discharge Cognitive/behavioral status at discharge: oriented Functional status at discharge: uses cane/walker Overall status at discharge: patient is progressing back to baseline Exam Vital Signs (past 8 hours): - 06/05/21 06:00 06/05/21 08:48 06/05/21 12:03 Temperature 99.1 F 99.9 F H 99.1 F Pulse Rate 72 84 72 Respiratory Rate 14 18 18 Blood Pressure 129/79 110/64 133/76 Pulse Oximetry 96 95 96 Oxygen Delivery Method Room Air Oxygen Flow Rate 0 Narrative Exam Narrative: Please see prior note from today Objective Labs Result Diagrams: 06/05/21 05:40 Labs: Laboratory Results - last 24 hr 06/05/21 05:40 Hgb 10.7 L Hct 32.3 L PFSH Medical History Anesthesia complication Anxiety CRPS (complex regional pain syndrome type I) Easy bruisability Heartburn Miscarriage Surgical History History of arthroscopy of right shoulder History of bunionectomy of right great toe History of hysterectomy Hx of arthroscopy of left knee Hx of dilation and curettage Hx of laminectomy Social History household members: spouse and family Smoking Status: Former smoker alcohol intake: former Discharge Assessment & Plan Assessment and Plan Assessment: -stable status post left total knee arthroplasty -history of complex regional pain syndrome Plan of Treatment: -mobilize with PT. Weightbearing as tolerated front wheel walker. -Continue with pain regimen from PCP: [facility] ER 15 mg t.i.d., Dilaudid 2 mg as needed for breakthrough pain. Tylenol and naproxen. -aspirin 81 mg twice daily for DVT prophylaxis -prescription of Zofran for low-grade nausea -DC drain per Dr. Islas -DC home when cleared by PT Discharge Plan Discharge Plan Patient Disposition: Home Discharge orders & Medications Discharge Orders: Discharge (Order); Ordered 06/05/21 Ordered By: Leeann Prieto Prescriptions: New acetaminophen 500 mg capsule 500 mg PO Q4H MDD Max 3000 mg per day PRN (Reason: fever or pain) Qty: 90 0RF aspirin 81 mg Tablet,Delayed Release (Dr/Ec) 81 mg PO BID 42 Days Qty: 84 0RF Rx Instructions: X6 weeks to prevent blood clots docusate sodium 100 mg Capsule 100 mg PO BID PRN (Reason: Constipation from narcotic pain med) Qty: 30 0RF ondansetron 4 mg Tablet,Disintegrating 4 mg PO Q4HR PRN (Reason: Nausea) Qty: 20 0RF Continued topiramate 25 mg Tablet 25 mg PO BID 0RF hydromorphone 2 mg Tablet 2 mg PO TID PRN (Reason: Pain) 0RF morphine 15 mg Tablet Extended Release 15 mg PO TID 0RF duloxetine 60 mg Capsule,Delayed Release(Dr/Ec) 60 mg PO BID 0RF naproxen sodium [Aleve] 220 mg Capsule 440 mg PO QD-TID PRN (Reason: Pain) 0RF Follow up/Referrals: Cody Strong MD [Primary Care Provider] - Amanda Islas MD [Physician] - (10-14 days for postoperative visit) Diet/Activity/Treatments Diet: Diet as Tolerated Other treatments: Medications: -Aspirin 81mg twice daily x6 weeks to prevent blood clots. -OTC Tylenol 500 mg 1 tablet every 4 hours as needed for pain/fever. Max 6 tablets per day. -Naproxen as needed for pain/inflammation. -please continue current pain regimen with Dilaudid for breakthrough pain -Zofran as needed for nausea -As needed medications: -Ducolax and /or MiraLax as needed for constipation from narcotic pain medications. -Pepcid AC as needed for stomach upset (usually from aspirin or ibuprofen). Dressing/Wound care: -Remove the Devon wrap 48 hours after surgery. -Keep Aquacell dressing in place until postoperative follow-up office visit. -Okay to shower. Keep wound out of direct water stream. No soaking or submerging until all the scabs fall off (approximately 6 weeks). -Please call the office if dressing becomes wet, soiled, or saturated. Activities: -Weight-bearing as tolerated. Use front wheeled walker, and progress to cane when safe. -Continue with home exercises as directed by your physical therapist. -Elevate ?toes above the nose if you have significant swelling in your lower leg. (A wedge pillow is easiest.) -Ice your incision as needed for pain/inflammation/swelling. Protect your skin with a folded pillowcase. Follow-up: -Follow-up with your surgeon or PA in the office in 10-14 days after surgery. -Follow-up with your surgeon 6 weeks postoperatively. Call the office if you have chest pain, shortness of breath, significant swelling that will not resolve with elevating, fever over 101?, significantly worsening pain. [facility]: [phone] Skin/Wound/Dressing Care Report to your healthcare provider any signs of infection, such as:: chills, fever, night sweats, unusual drainage and unusual redness Visit Report/Discharge Packet Instructions: DI for Knee Replacement Stand Alone Forms: Surgery Discharge Discharge Data Primary Care Provider: Cody Strong Attending Provider: Amanda Islas VTE Deep Vein Thrombosis/Pulmonary Embolism Present on Admission: No
--- NOTE | 2021-06-05 14:28 | PT.IPTN ---
Current Diagnoses Unilateral primary osteoarthritis, left knee (06/05/21) Surgery Performed Operation Date: 06/04/21 11:30 Actual Procedures p Total Knee Arthroplasty(Left) - Amanda Islas MD Physical Therapy Treatment Note M2 PT-IP Current Condition Start: 06/05/21 12:55 Freq: NEEDED Status: Active Protocol: Document 06/05/21 13:35 SP (Rec: 06/05/21 15:25 SP [id number]) Physical Therapy Current Condition Current Condition Evaluation Date 06/05/21 Treatment Diagnosis s/p L TKA; difficulty in walking Onset Date 06/04/21 M3 PT-IP Subjective Start: 06/05/21 12:55 Freq: NEEDED Status: Active Protocol: Document 06/05/21 13:35 SP (Rec: 06/05/21 15:25 SP [id number]) Subjective Physical Therapy Visit Type Type Treatment Note Visit Start Time 13:35 Visit Stop Time 14:28 Total Visit Minutes 53 Notes in room, completed caregiver training with donning gait belt and providing physical assist required throughtout tx with occasional cues from CEILING CLEANER as needed. Vitals throughout tx: seated in chair: 119/71 HR 84 standin/80 HR 76 post mobility: 137/80 HR 78 with increase nausea not productive and perspiration post toileting and stairs, palor complexion. Number of CEILING CLEANER Visits 1 Physical Therapy Visit Comments Patient Comments pt is agreeable to do PT Patient Goals return home with to assist her. Therapy Pain Assessment Pain When Pain Assessed At Rest Pain Present Pain Present Pain Reported Location Left Knee Intensity 8 Scale Used 9/10 with mobility Description With Movement Pain Behaviors Facial Grimacing,Guarding Pain Management Techniques Distraction,Modification of Treatment,Re-positioning, Timing of Activity with Medications M4 PT-IP Mobility and Gait Start: 06/05/21 12:55 Freq: NEEDED Status: Active Protocol: Document 06/05/21 13:35 SP (Rec: 06/05/21 15:25 SP [id number]) PT-Bed Mobility Assessment Sit to Supine Sit to Supine Standby Assistance PT-Transfer Assessment Sit to and From Stand Sit to and from Stand Contact Guard Assistance, Minimal Assistance,1 Person Assistance,Use of Upper Extremities Equipment Transfer Assistive Device Gait Belt,Front Wheeled Walker Orthotic/Prosthetic Devices or Brace: No Transfers Transfer Destination Bed,Toilet,Wheelchair Transfer Technique ambulated w/ FWW Transfer Ability Level of Assist Minimal Assistance,1 Person Assistance,Use of Upper Extremities Comments Mobility Comments Pt seated in chair when arrived, discussed post op ex: quad set, AP, discussed heel slide but not performed, ed can use gait belt for AAROM. donned gait belt in sitting. Sit>stand CG- 10%A from LLE forward positioning, pushed from chair arms to FWW, gait to bathroom approx 8 ft step to patterning heavy BUE on FWW, slow decreased stride and foot clearance gait, cued LLE knee flexion during swing phase. SPT w/ FWW front toilet, able self undergarment self 1 UE and other UE on FWW w/ Min A stability from at trunk little unsteady, cued reach toilet and other UE on FWW slow descent sit due to no rail support at home, Min A from . Pt voided and completed pericare self in sitting. Sit>Stand Min A w/ FWW, self manage undergarment BUE but unsteady sway Min A for recovery, Cued pt use 1 UE and can assist her if needed and communicate. Gait to sink 10 ft, cued facing for stability CGA, able stand unsupported but abdomen lean on sink. Pt gait to w/c in hallway 10 ft slow step to patterning, improved L knee flexion with cues and heel toe heel strike. Pt reported really nausious needed to sit, CGA-10% A sit in w/c. Reassessed BP 137/80 HR 78 increase from pre mobility. Pt rest in w/c 2 min then requested stairs assessment to proceed. Pt completed stairmgt step to patterning using BUE on L HR (has at home ) CG- 10%A. Pt required stand brief rest at top 3 stairs due to reported feeling sweaty, post stairs stated can't walk anyfurther really nausious. Pt wheeled back to room, SPT w/c >bed w/ FWW CGA, sit>supine SBA using bed rail and RLE hooked under LLE to lift in bed and center self. Discussed post op exercises does and knows them well but not performed. CEILING CLEANER notified nursing BPs taken and pt responses with activity nausious, demonstrated little sweaty and palor complexion with activity and pain continues 9/10 L knee pt stated is different than the constant usually has. will make calls to see if can borrow FWW from DME list provided, CEILING CLEANER contact care mgt may need FWW order, when CEILING CLEANER hears back from soon if need FWW by end day. Pt was able to complete all mobility needed with . Is ok to return home with to assist her when medically cleared. WIll continue to assess progress. Gait Assessment Gait Gait Assistance Required: Minimum Assistance Distance (Feet) 28 Able to Maintain Weight Bearing Status Yes During Gait Assistive Devices Assistive Device Gait Belt,Front Wheeled Walker Orthotic/Prosthetic Devices or Brace: No Gait Deviations General Gait Pattern Antalgic,Decreased Stride Length,Decreased Feet Clearance,Step-to Gait Factors Limiting Gait Function Factors Limiting Gait Function Decreased Activity Tolerance, Decreased Strength,Limited Range of Motion,Pain,Poor Balance,Poor Safety Awareness Comments Gait Comments See mobility for details. Stair Climbing Assessment Evaluation Level of Assist On Stairs Contact Guard Assistance, Minimal Assistance,1 Person Assistance Devices Stair Climbing Assistive Devices Left Railing Technique/Endurance Stair Climbing Direction Ascend and Descend Stair Climbing Technique Step to Step Number of Steps Climbed 3 Stair Climbing Set # Repetitions (reps) 1 Comments Stair Climbing Comments see mobility details. PT-Balance Assessment Sitting Balance and Reactions Static Sitting Balance Ability Good Dynamic Sitting Balance Ability Good Standing Balance and Reactions Static Standing Balance Ability Fair Dynamic Standing Balance Ability Fair Device Used FWW M5 PT-IP Objective Assessments Start: 06/05/21 12:55 Freq: NEEDED Status: Active Protocol: Document 06/05/21 10:15 AB (Rec: 06/05/21 13:16 AB [id number]) Orientation Orientation/Cognition Level of Alertness Alert Orientation Name,Age,Birthday,Month,Date, Year,Day of Week,Place, Situation Language Function Ability No Deficits Noted Safety Awareness Understands Safety Issues Memory Description No Deficits Noted Gross Range of Motion Lower Extremity ROM Assessment Left Impaired Impairments L knee flexion: ~ 50 deg Strength Lower Extremity Strength Assessment Left Impaired Knee 3+/5 Coordination Assessment Gross Coordination Gross Coordination WNL Sensation Assessment Sensation Gross Sensation WNL Muscle Tone Muscle Tone WNL Yes M6 PT-IP Treatment Start: 06/05/21 12:55 Freq: NEEDED Status: Active Protocol: Document 06/05/21 13:35 SP (Rec: 06/05/21 15:25 SP [id number]) Physical Therapy Treatment Exercises Exercises Ankle Pumps,Quad Sets Knee ROM Measurement L knee seated in chair approx 80 deg. Education Education Provided Precautions,Weight Bearing Status,Post-Op Packet,Safety M7 PT-IP Assessment and Plan Start: 06/05/21 12:55 Freq: NEEDED Status: Active Protocol: Document 06/05/21 13:35 SP (Rec: 06/05/21 15:25 SP [id number]) PT Summary Assessment and Plan Potential Rehabilitation Potential Fair Status of Condition at Evaluation Evolving Summary Impairments Pain,ROM,Strength,Balance, Coordination,Sensation,Tone, Bed Mobility,Transfers,Gait, Activity Tolerance Progress Towards Goals Progressing Toward Goals,Slow Progress due to Pain,Slow Progress due to Medical Issues ,Slow Progress due to Activity Tolerance Assessment Summary Pt had elevated pain 9/10 L knee. SIt<>stand, gait and stair mgt CG- Min A with FWW Sit>supine sBA. Pt increased nausea but not productive, experienced bouts of increased perspiration during toileting and stairs, elevated BP, palor complexion concerning duiring activity. CEILING CLEANER notified nursing response to tx. Pt required increase time to complete activity due to pain and decreased strength and activity tolerance, ok to return home when medically cleared. Will continue to assess progress. Pt might need FWW, waitiing to hear from if can borrorw or need to dispense one prior to DC. Goals Bed Mobility Goal Independent Transfer Goal Independent,Front Wheeled Walker,Four Wheeled Walker Gait Goal Independent,Front Wheel Walker ,Four Wheel Walker Gait Distance 200 Other Goals up/down 3 steps L rail ascending CGA Days to Meet Goals 5 Frequency of Treatment Frequency Of Treatment Twice a Day Treatment Plan Physical Therapy Treatment Plan Bed Mobility Training,Transfer Training,Gait Training, Therapeutic Exercise,Balance Retraining,Post Op Education, Discharge Planning,Hot or Cold Pack,Neuromuscular Re-ed, Coordination Retraining,Manual Therapy Other Recommendations and Next Treatment bed mob, post op ex, gait fWW Focus vs 4WW. Weight Bearing Status Weight Bearing Status Weight Bear as Tolerated Allowed Weight Bearing Amount (enter % LLE WBAT or #) (%) Recommendations To Nursing Amount of Assist Needed 1 Person Assist Discharge Recommendations PT Discharge Recommendations Home with / Assist Available,Home Health Equipment Needed for Home Before FWW if not safe with 4WW, Discharge looking if can borrow FWW, if not PT will dispense with order. Transportation Needs at Discharge Private Vehicle
[2021-06-05 15:00] VITALS: BP 123/73; PULSE 73; RESP 18; TEMP 37.3; O2SAT 98
[2021-06-05 20:05] VITALS: BP 123/70; PULSE 73; RESP 16; TEMP 37.3; O2SAT 93
[2021-06-06] MEDS: HYDROMORPHONE 2 MG TABLET PO ×3 (01:19→11:15)
[2021-06-06] MEDS: NAPROXEN 250 MG TABLET 500 MG PO (04:55)
[2021-06-06 04:57] VITALS: BP 127/78; PULSE 75; RESP 16; TEMP 37.3; O2SAT 96
[2021-06-06 09:07] VITALS: BP 124/70; PULSE 73; RESP 16; TEMP 36.8; O2SAT 96
[2021-06-06] MEDS: ASPIRIN EC 81 MG TABLET PO (09:41)
[2021-06-06] MEDS: MORPHINE ER 15 MG TABLET PO (09:41)
[2021-06-06] MEDS: DOCUSATE 100 MG CAPSULE PO (09:41)
[2021-06-06] MEDS: DULOXETINE 30 MG CAPSULE 60 MG PO (09:41)
[2021-06-06] MEDS: TOPIRAMATE 25 MG TABLET PO (09:42)
[2021-06-06] MEDS: ACETAMINOPHEN 325 MG TABLET 650 MG PO (09:42)
--- NOTE | 2021-06-06 10:15 | PT.IPTN ---
Current Diagnoses Unilateral primary osteoarthritis, left knee (06/05/21) Surgery Performed Operation Date: 06/04/21 11:30 Actual Procedures p Total Knee Arthroplasty(Left) - Amanda Islas MD Physical Therapy Treatment Note M2 PT-IP Current Condition Start: 06/05/21 12:55 Freq: NEEDED Status: Active Protocol: Document 06/06/21 09:40 SP (Rec: 06/06/21 11:35 SP [id number]) Physical Therapy Current Condition Current Condition Evaluation Date 06/05/21 Treatment Diagnosis s/p L TKA; difficulty in walking Onset Date 06/04/21 M3 PT-IP Subjective Start: 06/05/21 12:55 Freq: NEEDED Status: Active Protocol: Document 06/06/21 09:40 SP (Rec: 06/06/21 11:35 SP [id number]) Subjective Physical Therapy Visit Type Type Treatment Note Visit Start Time 09:40 Visit Stop Time 10:15 Total Visit Minutes 35 Notes in room, completed caregiver training with donning gait belt and providing physical assist required throughtout tx. Pt denied nausea, sweating this tx. No vitals taken. Number of AUTO ELECTRICIAN Visits 2 Physical Therapy Visit Comments Patient Comments I am so glad I was encourage to stay last night, got good night sleep and feel alot better. Patient Goals return home with to assist her. Therapy Pain Assessment Pain When Pain Assessed At Rest Pain Present Pain Present Pain Reported Location Left Knee Intensity 5 Scale Used 5/10 at rest, 7/10 with mobility Description With Movement Pain Behaviors Facial Grimacing Pain Management Techniques Distraction,Modification of Treatment,Re-positioning, Timing of Activity with Medications M4 PT-IP Mobility and Gait Start: 06/05/21 12:55 Freq: NEEDED Status: Active Protocol: Document 06/06/21 09:40 SP (Rec: 06/06/21 11:35 SP [id number]) PT-Transfer Assessment Sit to and From Stand Sit to and from Stand Standby Assistance,Use of Upper Extremities Equipment Transfer Assistive Device Gait Belt,Front Wheeled Walker Orthotic/Prosthetic Devices or Brace: No Transfers Transfer Destination Chair,Toilet Transfer Technique ambulated w/ FWW Transfer Ability Level of Assist Standby Assistance,Use of Upper Extremities Comments Mobility Comments Instructed post op ex reclined in chair: AP, quad set, heel side AROM approx 90 deg L knee. Assisted chair leg resets down. Pt scooted eEOChair SBA, donned gait belt, sit>stand SBA good push from chair arms to FWW. Gait across room sBA w/ FWW step to patterning, education on L knee flexion swing phase, heel toe during heel strike phase into WB and awareness quad facilitation during midstance phase step over step patterning if can, improved with slow pacing distance across room, slow moving but able to complete 1 lap before stated pain increasing so returned to chair for rest, sBA. 2 min rest, STS gait to bathroom, SPT w/ FWW, Pt self undergarment mgt w/ 1 UE contact on fWW, cued reach back for toilet 1 UE and other on FWW descent to chair, sBA by . self pericare seated, STS cued push from toilet other UE on FWW but AUTO ELECTRICIAN . Stand balance ableto manage undergarment self BUE, SBA by , no LOB. Gait to sink, no UE support wash hands then returned to chair sBA, total distances gait: 30ft, 8 ft, 10 ft, 5 ft. Pt report L knee little unsteady but feels alot better and stable just needs to move slowly. Pt had call light an all needs in reach, notified nurse pt ok to return home with assist her when medically cleared. acquried FWW and stated pt set up with outpt therapy on . Gait Assessment Gait Gait Assistance Required: Standby Assistance Distance (Feet) 30 Able to Maintain Weight Bearing Status Yes During Gait Assistive Devices Assistive Device Gait Belt,Front Wheeled Walker Orthotic/Prosthetic Devices or Brace: No Gait Deviations General Gait Pattern Decreased Stride Length, Decreased Feet Clearance,Step- to Gait Factors Limiting Gait Function Factors Limiting Gait Function Decreased Activity Tolerance, Decreased Strength,Limited Range of Motion,Pain,Poor Safety Awareness Comments Gait Comments See mobility comments for details PT-Balance Assessment Sitting Balance and Reactions Static Sitting Balance Ability Normal Dynamic Sitting Balance Ability Normal Standing Balance and Reactions Static Standing Balance Ability Good Dynamic Standing Balance Ability Good Device Used FWW M5 PT-IP Objective Assessments Start: 06/05/21 12:55 Freq: NEEDED Status: Active Protocol: Document 06/05/21 10:15 AB (Rec: 06/05/21 13:16 AB [id number]) Orientation Orientation/Cognition Level of Alertness Alert Orientation Name,Age,Birthday,Month,Date, Year,Day of Week,Place, Situation Language Function Ability No Deficits Noted Safety Awareness Understands Safety Issues Memory Description No Deficits Noted Gross Range of Motion Lower Extremity ROM Assessment Left Impaired Impairments L knee flexion: ~ 50 deg Strength Lower Extremity Strength Assessment Left Impaired Knee 3+/5 Coordination Assessment Gross Coordination Gross Coordination WNL Sensation Assessment Sensation Gross Sensation WNL Muscle Tone Muscle Tone WNL Yes M6 PT-IP Treatment Start: 06/05/21 12:55 Freq: NEEDED Status: Active Protocol: Document 06/06/21 09:40 SP (Rec: 06/06/21 11:35 SP [id number]) Physical Therapy Treatment Exercises Exercises Ankle Pumps,Quad Sets,Heel Slides,Seated Knee Flexion/ Extension Knee ROM Measurement L knee AROM 90 deg Education Education Provided Precautions,Weight Bearing Status,Safety M7 PT-IP Assessment and Plan Start: 06/05/21 12:55 Freq: NEEDED Status: Active Protocol: Document 06/06/21 09:40 SP (Rec: 06/06/21 11:35 SP [id number]) PT Summary Assessment and Plan Potential Rehabilitation Potential Fair Status of Condition at Evaluation Evolving Summary Impairments Pain,ROM,Strength,Balance, Coordination,Sensation,Tone, Bed Mobility,Transfers,Gait, Activity Tolerance Progress Towards Goals Progressing Toward Goals,Slow Progress due to Pain,Slow Progress due to Activity Tolerance Assessment Summary Pt complete mobility SBA w/ FWW, good demonstration AROM L Knee approx 90d eg, is ok to return home with to assist her when medically cleared, set up with outpt therapy. Goals Bed Mobility Goal Independent Transfer Goal Independent,Front Wheeled Walker,Four Wheeled Walker Gait Goal Independent,Front Wheel Walker ,Four Wheel Walker Gait Distance 200 Other Goals up/down 3 steps L rail ascending CGA Days to Meet Goals 5 Frequency of Treatment Frequency Of Treatment Twice a Day Treatment Plan Physical Therapy Treatment Plan Bed Mobility Training,Transfer Training,Gait Training, Therapeutic Exercise,Balance Retraining,Post Op Education, Discharge Planning,Hot or Cold Pack,Neuromuscular Re-ed, Coordination Retraining,Manual Therapy Other Recommendations and Next Treatment ROM, postop ex, gait further Focus distance w/ FWW. Weight Bearing Status Weight Bearing Status Weight Bear as Tolerated Allowed Weight Bearing Amount (enter % LLE WBAT or #) (%) Recommendations To Nursing Amount of Assist Needed Standby Assistance Discharge Recommendations PT Discharge Recommendations Home with Assistance, Outpatient PT Transportation Needs at Discharge Private Vehicle
--- NOTE | 2021-06-06 15:24 | CM.DPC ---
DCP Discharge Home Per Ortho PA, pt's discharge had been cancelled last night due to orthostatics, but resolved and pt no longer has nausea or dizziness and stable for d/c home today. Per FILM DEVELOPING MACHINE OPERATOR, CG training completed and recommending safe d/c home with spouse assist and outpt PT which pt already has set up and scheduled for next week. Plan: Patient to d/c home today via spouse POV and outpt PT and no further SW needs at this time. PAMELA Gibson
== END 2021-06-06 11:30 | disposition home or self-care (01) ==
LOC: OR 15:06 → AC 15:06
PROVIDERS: Admitting Provider Orthopaedic Surgery; PCP Internal Medicine; Referring Provider Orthopaedic Surgery; Visit Provider Orthopaedic Surgery
PROC: 0SRD0JZ Replacement of Left Knee Joint with Synthetic Substitute, Open Approach (ICD-10-PCS; CPT 27447; principal; 2021-06-04 11:30)
DX: M17.12 Unilateral primary osteoarthritis, left knee (principal); F32.9 Major depressive disorder, single episode, unspecified
CPT/HCPCS: 27447; 64450; 73560; 85014; 85018; 97116; 97162; 97530; C1776; G0378; C1713; C9290; J0171; J0690; J1170; J2175; J2250; J2405; J2704; J3010

== ENCOUNTER → 2022-08-27 13:00 | Outpatient (CLI) | payer OTHER, SELFPAY ==
[2021-06-04 15:09] VITALS: BMI 25.9
--- NOTE | 2022-08-27 | DI.MG.S_ITS ---
BILATERAL DIGITAL SCREENING MAMMOGRAM 3D/2D WITH CAD: 08/27/2022 CLINICAL: Routine screening. Comparison is made to exams dated: 01/10/2020 mammogram - [facility], 10/06/2017 mammogram, and 09/02/2016 mammogram - outside location. There are scattered areas of fibroglandular density in both breasts (category b / 25%-50% glandular tissue). Current study was also evaluated with a Computer Aided Detection (CAD) system. No significant masses, calcifications, or other findings are seen in either breast. There has been no significant interval change. IMPRESSION: NEGATIVE There is no mammographic evidence of malignancy. A 1 year screening mammogram is recommended. Based on the Tyrer Cuzick model (a risk assessment model) the patient's lifetime risk is 5.4% and her 10 year risk is 2.3%. According to the ACR, ACS, and NCCN guidelines, an annual breast MRI exam along with mammogram is recommended if the patient's lifetime risk is 20% or greater. This exam was interpreted at Station ID: [id number]. NOTE: For mammograms, a report in lay terms will be sent to the patient. Approximately 15% of breast malignancies will not be visualized mammographically. In the management of a palpable breast mass, a negative mammogram must not discourage biopsy of a clinically suspicious lesion. Electronically Signed By: Wes concepcion/herman:08/27/2022 17:13:12 copy to: DENISE LEON letter sent: Normal Exam ACR BI-RADS Category 1: Negative [id number]
== END ==
PROVIDERS: PCP Physician Assistant; Referring Provider Physician Assistant; Visit Provider Physician Assistant
DX: Z12.31 Encounter for screening mammogram for malignant neoplasm of breast (principal)
CPT/HCPCS: 77063; 77067

== ENCOUNTER → 2023-03-08 14:11 | Outpatient (CLI) | payer OTHER, SELFPAY ==
[2021-06-04 15:09] VITALS: BMI 25.9
--- NOTE | 2023-03-08 14:15 | DI.RAD.S_ITS ---
Bone Density Report Name: BELLE BOOTH Age: 62 Sex: Female Ethnicity: White Date of : 1960 Indication: osteopenia; Referring Provider: DILSHAD LEA Study: Bone densitometry was performed. Exam Date: March 08, 2023 Accession number: [id number] Bone Density: Region BMD T-score Z-score Classification AP Spine(L1-L4) 0.852 -1.8 -0.1 Osteopenia Femoral Neck (Left) 0.659 -1.7 -0.3 Osteopenia Total Hip (Left) 0.780 -1.3 -0.2 Osteopenia Femoral Neck (Right) 0.675 -1.6 -0.1 Osteopenia Total Hip (Right) 0.798 -1.2 -0.1 Osteopenia Total Hip Mean 0.789 -1.3 -0.2 Osteopenia World Health Organization criteria for BMD impression classify patients as: Normal (T-score at or above -1.0), Osteopenia (T-score between -1.0 and -2.5), or Osteoporosis (T-score at or below -2.5). 10-year Fracture Risk(1): Major Osteoporotic Fracture 9.4% Hip Fracture 1.1% Reported Risk Factors: [place] (), Neck BMD=0.659, BMI=25.3 (1) FRAX(R) Version 3.08. Fracture probability calculated for an untreated patient. Fracture probability may be lower if the patient has received treatment. Previous Exams: -- Region Exam Age BMD T-score BMD Change BMD Change Date g/cm2 vs Baseline vs Previous -- AP Spine (L1-L4) 03/08/2023 62 0.852 -1.8 -0.002 (-0.2%)# -0.002 (-0.2%)# 01/10/2020 59 0.854 -1.8 Total Hip(Left) 03/08/2023 62 0.780 -1.3 -0.018 (-2.3%)# -0.018 (-2.3%)# 01/10/2020 59 0.798 -1.2 Total Hip(Right) 03/08/2023 62 0.798 -1.2 0.013 (1.7%)# 0.013 (1.7%)# 01/10/2020 59 0.785 -1.3 -- *Denotes significance at 95% confidence level, LSC for AP Spine = 0.022 g/cm2, LSC for Total Hip = 0.027 g/cm2 # Denotes dissimilar scan types or analysis methods Impression: The patient has low bone mass, based on the Total Spine T-score. The patient has an estimated ten-year risk of hip fracture of 1.1% and an estimated ten-year risk of major fracture of 9.4%, based on the WHO FRAX algorithm. No significant bone loss was observed. Discussion: BONE DENSITY IS LOW AT ONE OR MORE SKELETAL SITES. This patient's lowest T-score is low at one or more skeletal sites. It meets the World Health Organization's (WHO) criteria for low bone mass (T-score between -1.0 and -2.5). The patient's 10-year risk of fracture as calculated by FRAX is less than the threshold where pharmacological therapy is recommended by the National Osteoporosis Foundation (NOF). However, all treatment decisions require clinical judgment and consideration of individual patient factors, including patient preferences, comorbidities, previous drug use, risk factors not captured in the FRAX model (e.g., frailty, falls, vitamin D deficiency, increased bone turnover, interval significant decline in bone density) and possible under or overestimation of fracture risk by FRAX. The patient should follow a healthful lifestyle (good nutrition with adequate calcium and vitamin D, and appropriate weight-bearing exercise). Follow-Up: Consider repeating this study in 2 to 3 years to reassess this patient's status, or sooner if there is some new clinical indication. Reported by: ANTONETTE CONTRERAS M.D. on 03/08/2023 3:39:00 PM.
[2023-03-08 15:41] LABS: Appearance Urine UA CLEAR; Bilirubin Urine UA NEGATIVE (NEGATIVE); Color Urine UA YELLOW; Glucose Urine UA NEGATIVE (Negative); Ketones Urine UA NEGATIVE (NEGATIVE); Leukocyte Esterase Urine UA NEGATIVE (NEGATIVE); Nitrite Urine UA NEGATIVE (Negative); Occult Blood Urine UA NEGATIVE (Negative); Protein Urine UA NEGATIVE (Negative); Specific Gravity Urine UA >=1.030 (1.000-1.035)
[2023-03-08 15:42] LABS: pH Urine UA 5.5 (4.5-8.0)
[2023-03-08 15:56] LABS: Bacteria Urine Occasional (0-1); Culture Indicated Urine Cult Not Indicated; RBC Urine 0-1/HPF (0-5/HPF); Squamous Epithelial Cell Urine 0-1 /HPF (0-5/HPF); WBC Urine 0-1/HPF (0-5/HPF)
[2023-03-08 16:39] LABS: Hematocrit 37.8 % (36-46); Hemoglobin 12.6 g/dL (12.0-16.0); Mean Corpuscular HGB Conc 33.3 % (30-36); Mean Corpuscular Hemoglobin 29.9 PG (26-34); Mean Corpuscular Volume 89.6 fL (80-100); Platelet Count 272 X10^3/uL (150-400); Red Blood Cell Count 4.21 X10^6/uL (4.0-5.2); Red Cell Distribution Width 14.4 % (11.6-14.8); White Blood Cell Count 4.7 X10^3/uL (4.5-11.0)
[2023-03-08 16:55] LABS: Hemoglobin A1C% w Est Avg Glu 5.6 % (4.0-6.0)
[2023-03-08 16:55] LABS: Alanine Aminotransferase 16 IU/L (<35); Albumin 4.2 g/dL (3.5-5.0); Albumin Globulin Ratio 1.3 (1.0-2.8); Alkaline Phosphatase 71 U/L (38-126); BUN Creatinine Ratio 16.7 (6-22); Bilirubin Total 0.5 mg/dL (0.2-1.3); Blood Urea Nitrogen 12 mg/dL (7-17); Calcium 9.2 mg/dL (8.4-10.2); Carbon Dioxide 30 mmol/L (22-32); Chloride 101 mmol/L (98-107); Cholesterol 192 mg/dL (140-199); Estimated Glomerular Filt Rate > 60 mL/min (>60); Globulin 3.2 g/dL (1.7-4.1); Glucose 99 mg/dL (80-110); HDL Cholesterol 84 mg/dL (40-60); HEMOLYSIS < 15 (0-50); LDL Cholesterol Calculated 90 mg/dL (<100); Sodium 137 mmol/L (137-145); Total Protein 7.4 g/dL (6.3-8.2); Triglycerides 91 mg/dL (35-150)
[2023-03-08 16:57] LABS: HEMOLYSIS < 15 (0-50); Iron 70 ug/dL (37-170)
[2023-03-08 17:04] LABS: Erythrocyte Sedimentation Rate 7 MM/HR (0-20)
[2023-03-08 17:08] LABS: Percent Iron Saturation 24 % (15-50); Total Iron Binding Capacity 296 ug/dL (265-497)
[2023-03-08 17:09] LABS: Transferrin 267 mg/dL (206-381)
[2023-03-08 17:13] LABS: Vitamin D 25 Hydroxy (D3) 41.7 ng/mL (30.0-100.0)
[2023-03-08 17:26] LABS: Ferritin 22 ng/mL (11-264)
[2023-03-08 17:29] LABS: TSH w/ Reflex to FT4 0.72 uIU/mL (0.47-4.68)
[2023-03-08 17:41] LABS: Vitamin B12 244 pg/mL (239-931)
[2023-03-11 16:35] LABS: Aspartate Aminotransferase 30 IU/L (14-36)
== END ==
PROVIDERS: PCP Internal Medicine; Referring Provider Internal Medicine; Visit Provider Internal Medicine
DX: Z01.818 Encounter for other preprocedural examination (principal); Z01.812 Encounter for preprocedural laboratory examination; M85.88 Other specified disorders of bone density and structure, other site; R73.9 Hyperglycemia, unspecified; N39.0 Urinary tract infection, site not specified; D64.9 Anemia, unspecified; E53.8 Deficiency of other specified B group vitamins; E78.2 Mixed hyperlipidemia; E55.9 Vitamin D deficiency, unspecified
CPT/HCPCS: 36415; 77080; 80053; 80061; 81001; 82306; 82607; 82728; 83036; 83540; 83550; 84443; 85027; 85651; 93005

== ENCOUNTER 2023-04-05 08:43 | Day surgery (SDC) | payer OTHER, SELFPAY ==
[2021-06-04 15:09] VITALS: BMI 25.9
[2023-03-29 08:20] VITALS: BMI 25.7
[2023-04-05] VITALS (11 sets, daily range): BP systolic 112–165; BP diastolic 66–95; PULSE 71–101; RESP 12–18; TEMP 36.4–36.7; O2SAT 91–97; BMI 25.8
[2023-04-05] MEDS: LACTATED RINGERS 1,000 ML 42 ML IV (09:07)
[2023-04-05] MEDS: CELECOXIB 200 MG CAPSULE 400 MG PO (09:40)
[2023-04-05] MEDS: VANCOMYCIN 1,000 MG/200 ML PIGGYBACK 200 MG IV (10:04)
[2023-04-05] MEDS: ACETAMINOPHEN 325 MG TABLET 975 MG PO (10:12)
--- NOTE | 2023-04-05 10:30 | DI.RAD.S_ITS ---
PROCEDURE: XR KNEE RT 1TO2V INDICATIONS: TKA TECHNIQUE: 2 views of the knee were acquired. COMPARISON: None available at the time of dictation FINDINGS: Bones: No fractures or dislocations. Total right knee hardware is seen with out evidence of perihardware lucency. Soft tissue swelling of the anterior knee seen with areas of soft tissue air likely postop in nature.Expected alignment is noted. Soft tissues: Soft tissue swelling is likely postop in etiology. IMPRESSION: Expected postop changes of the right knee. Dictated by: Carlos Obrien M.D. on 04/05/2023 at 19:13 Approved by: Carlos Obrien M.D. on 04/05/2023 at 19:17
--- NOTE | 2023-04-05 10:45 | PM.PREOP ---
Pre-operative Note Interval Note History & Physical reviewed/Exam performed by Physician: Yes Changes to H&P: No
--- NOTE | 2023-04-05 10:45 | PM.OP.1 ---
Operative Date/Time/Diagnoses Date of procedure: 04/05/23 Time of procedure: 11:20 Pre-op diagnosis: Right knee osteoarthritis, reflex sympathetic dystrophy Post-op diagnosis: same Procedure & Clinicians Procedure: Right total knee arthroplasty Same procedure as scheduled: Yes Indications: The patient has had progressively worsening right knee pain with radiographic changes consistent with arthritis. Non-operative management has failed and the patient has requested total knee replacement. The risks, benefits and alternatives to surgery were discussed with the patient prior to proceeding. Risks discussed included, but were not limited to, failure to relieve pain, stiffness, infection, nerve damage, deep venous thrombosis, pulmonary embolism, stroke, coma, heart attack, permanent paralysis and , as well as the potential need for eventual revision of the prosthetic. Surgeon: Amanda Islas Ceramic Tile Installer: Nomi Yarbrough Anesthesia Type: General and Spinal Operative Notes Findings: Severe right knee osteoarthritic change, good stability and range motion Closure Type: primary Specimen(s): none sent Prosthetic devices, grafts, tissues, transplants, or devices: [facility] 2 size 5 femur, size 3 tibia, +9 poly, 35 x 7-1/2 mm patella Estimated Blood Loss (mL): 250 Blood products transfused: none Tourniquet time (min): 93 Procedure in detail: The patient was seen in the pre-operative area, where the patient identified the right knee as the operative site and this was marked with my initials. The patient received pre-operative antibiotics, and was taken to the operating room and placed on the operative table in the supine position. After satisfactory anesthesia, a time study engineer out was performed. The right leg was encircled with a tourniquet about the proximal thigh, and the leg was prepared from the toes to the tourniquet with ChloroPrep in the usual fashion and draped through sterile drapes. The leg was elevated and exsanguinated with Eschmark bandage and the tourniquet inflated to [250] mmHg pressure. A PA was used throughout the procedure and was essential for intraoperative retraction and safe implantation of the components. An 18 cm incision was made over the medial aspect of the patellar tendon. Dissection was carried out through skin and subcutaneous tissues. A parapatellar arthrotomy was then performed. The anterior aspect of the meniscus and fat pad were then resected. Osteophytes were carefully resected. To Cori pins were placed in the femur and in the tibia for robotic assisted navigation. The patient was then placed through a range of motion and measurements were taken for stressed and non stressed range of motion of the knee with the plan for robotic assisted resection of the distal femur and proximal tibia. The femur and the tibia were carefully mapped. Plan was taken and carefully improved. There was good balance throughout range of motion with about 1 mm of gap throughout range of motion. A bur was used to resect the femoral bone for the distal femoral cut and the new proximal tibial jig was applied. The 5 in 1 cutting block was applied the rotation was carefully checked. Finishing cuts were made on the femur. There was no evidence of notching. The anterior, posterior and chamfer cuts were then made. The posterior osteophytes and soft tissues were then removed. The posterior capsule was injected with part of a mixture of 60 ml 0.25% Marcaine mixed with 266 mg Exparel was injected throughout the procedure for post operative pain control. The remainder of this mixture was injected into the capsule and subcutaneous tissues during cement curing. The tibial jig was placed on the tibia and was navigated using the Cori robotic assisted system for alignment. The patient was placed in full extension and any residual meniscus or residual bone sirs spurs were carefully resected. It looked like an adequate extension gap. The tibial size was checked. Marcaine was injected. Tibial and femoral components were then placed and the knee placed through a range of motion. Range of motion was [0-130], with good stability throughout the range. There was excellent balance achieved and excellent alignment achieved using robotic navigation. The trials were then removed, and the tibia was finished. The bone was prepared with pulsatile lavage, and dried with a sponge. Cement was applied and the final prosthetics placed. Excess cement was removed during and after cement curing. A brief Betadine soak was performed. After confirming there was no extruded cement posteriorly, the final tibial insert was placed. The knee was copiously irrigated and the tourniquet deflated. Hemostasis was obtained with the Bovie cautery. The capsule was closed with interrupted nonabsorbable suture. The subcutaneous layer was closed with barbed sutures, and the skin with a running 3-0 V-Lock suture and Surgical glue. An Aquacel Ag dressing was applied and the patient was taken to recovery having tolerated the procedure well. Complications: none Post-operative Condition: stable Disposition: Acute Care Plan for aftercare: The patient will be maintained on a standard total knee replacement protocol with weight bearing as tolerated. The patient will receive aspirin and sequential compression devices for DVT prophylaxis. The patient will be discharged home when safe for the home environment.
[2023-04-05] MEDS: CEFAZOLIN 2 GM/100 ML PREMIX 100 ML IV ×2 (11:44→19:44)
[2023-04-05] MEDS: TRANEXAMIC ACID 1,000 MG VIAL 2000 MG INJ (11:47)
[2023-04-05] MEDS: BUPIVACAINE 0.25% (PF) 60 ML, EPINEPHrine 0.3 MG INJ (12:05)
[2023-04-05] MEDS: BUPIVACAINE LIPOSOME 266 MG/20 ML VIAL INJ (12:06)
[2023-04-05] MEDS: MORPHINE ER 15 MG TABLET PO ×2 (14:51→21:06)
[2023-04-05] MEDS: IBUPROFEN 400 MG TABLET PO ×3 (14:52→23:06)
[2023-04-05] MEDS: ACETAMINOPHEN 325 MG TABLET 650 MG PO ×2 (14:52→19:44)
[2023-04-05] MEDS: HYDROMORPHONE 0.5 MG INJ IV ×2 (14:54→19:45)
--- NOTE | 2023-04-05 15:00 | PT.IIE ---
Current Diagnoses Unilateral primary osteoarthritis, right knee (04/05/23) Surgery Performed Operation Date: 04/05/23 10:45 Actual Procedures p Total Knee Arthroplasty - Robot(Right) - Amanda Islas MD Surgical History (Last Updated 03/29/23 @ 08:26 by Delores Lopez RN) History of arthroscopy of right shoulder History of bunionectomy of right great toe History of hysterectomy History of total left knee replacement (06/04/21) Hx of arthroscopy of left knee Hx of dilation and curettage Hx of laminectomy Medical History (Last Updated 02/09/23 @ 13:59 by Jt Santoro MD) Age-related osteoporosis without current pathological fracture Anemia Anesthesia complication Anxiety Chronic, continuous use of opioids CRPS (complex regional pain syndrome type I) CRPS (complex regional pain syndrome) Easy bruisability Fatigue Heartburn Menopausal syndrome Miscarriage Mixed hyperlipidemia Primary osteoarthritis involving multiple joints Vitamin D deficiency Physical Therapy Inpatient Evaluation/Re-Eval M1 PT/OT-IP Prior Functional Status Start: 04/05/23 15:57 Freq: NEEDED Status: Active Protocol: Document 04/05/23 15:00 AB (Rec: 04/05/23 16:10 AB [id number]) Medical Review Prior Functional Status Medical History Reviewed Yes Communication able to make needs known Mobility and Gait pt stated that she was independent with all mobilities and ambulation without AD Social History Household Members spouse,family Living Arrangements House Number of Floors (Floors) Two Floors Number of Stairs To Enter/Railing? pt stays on main level of the house 3 steps L rail ascending to enter the house Home Environment High Toilet,Walk in Shower, Built-In Shower Seat Home Equipment Front Wheel Walker,Shower Seat with Backrest,Hand Held Shower,Grab Bars In Shower Additional Social History Comment pt's spouse Guillermo will be off work to assist pt at home; pt' s mother lives with her but will not be able to assist pt pt has an adjustable bed M2 PT-IP Current Condition Start: 04/05/23 15:57 Freq: NEEDED Status: Active Protocol: Document 04/05/23 15:00 AB (Rec: 04/05/23 16:10 AB [id number]) Physical Therapy Current Condition Current Condition Evaluation Date 04/05/23 Treatment Diagnosis s/p R TKA; difficulty in walking Onset Date 04/05/23 M3 PT-IP Subjective Start: 04/05/23 15:57 Freq: NEEDED Status: Active Protocol: Document 04/05/23 15:00 AB (Rec: 04/05/23 16:10 AB [id number]) Subjective Physical Therapy Visit Type Type Initial Evaluation Visit Start Time 15:00 Visit Stop Time 15:57 Number of [employer] Visits 57 Physical Therapy Visit Comments Patient Comments agreeable to do PT Therapy Pain Assessment Pain When Pain Assessed At Rest Pain Present Pain Present Pain Reported Location Right Knee Intensity 6 Scale Used Numeric (0 - 10) Pain Behaviors Facial Grimacing,Guarding Pain Management Techniques Apply Cold,Distraction, Modification of Treatment,Re- positioning,Timing of Activity with Medications M4 PT-IP Mobility and Gait Start: 04/05/23 15:57 Freq: NEEDED Status: Active Protocol: Document 04/05/23 15:00 AB (Rec: 04/05/23 16:10 AB [id number]) PT-Bed Mobility Assessment Supine to Sit Supine to Sit Standby Assistance Sit to Supine Sit to Supine Standby Assistance PT-Transfer Assessment Sit to and From Stand Sit to and from Stand Minimal Assistance,1 Person Assistance,Use of Upper Extremities Equipment Transfer Assistive Device Gait Belt,Front Wheeled Walker Orthotic/Prosthetic Devices or Brace: No Transfers Transfer Destination Toilet Transfer Technique ambulated Transfer Ability Level of Assist Contact Guard Assistance, Minimal Assistance,1 Person Assistance,Use of Upper Extremities Comments Mobility Comments pt supine in bed. spouse in room. obtained PLOF and home set up from pt. pt agreed to do PT. BP in supine: 121/73. O2 sat at RA: 90-94%. pt completed RLE heel slides prior to mobility. pt requesting to use the toilet. completed supine to sit SBa with HOB elevated to ~ 40 deg. pt has an adjustable bed at home. pt was able to sit on EOB SBA. c /o slight dizziness with initial sitting. BP checked: 120/73. pt completed sit to stand min A and ambulated to the toilet using FWW min A and cues for steadiness. completed toileting SBA. completed sit to stand using grab bar CGA and ambulated back to bed using FWW CGA to min A and cues. pt requested to go back to bed. completed sit to supine SBA. positioned pt in bed. call light and table placed within reach. ice packs provided. caregiver training set up with spouse: ~1015am Gait Assessment Gait Gait Assistance Required: Contact Guard Assist,Minimum Assistance Distance (Feet) 12 Able to Maintain Weight Bearing Status Yes During Gait Assistive Devices Assistive Device Gait Belt,Front Wheeled Walker Orthotic/Prosthetic Devices or Brace: No Gait Deviations General Gait Pattern Antalgic,Decreased Feet Clearance,Step-to Gait Factors Limiting Gait Function Factors Limiting Gait Function Decreased Activity Tolerance, Decreased Strength,Limited Range of Motion,Pain,Poor Balance,Poor Safety Awareness PT-Balance Assessment Sitting Balance and Reactions Static Sitting Balance Ability Good Dynamic Sitting Balance Ability Good Standing Balance and Reactions Static Standing Balance Ability Fair Dynamic Standing Balance Ability Fair Device Used FWW M5 PT-IP Objective Assessments Start: 04/05/23 15:57 Freq: NEEDED Status: Active Protocol: Document 04/05/23 15:00 AB (Rec: 04/05/23 16:10 AB [id number]) Orientation Orientation/Cognition Level of Alertness Alert Orientation Name,Place,Situation Language Function Ability No Deficits Noted Safety Awareness Decreased Safety Awareness Memory Description No Deficits Noted Gross Range of Motion Lower Extremity ROM Assessment Right Impaired Impairments R knee flexion: ~ 60 deg : increase guarding and c/o increase pain with movement Strength Lower Extremity Strength Assessment Right Impaired Hip 4-/5 Knee 4-/5 Coordination Assessment Gross Coordination Gross Coordination WNL Sensation Assessment Sensation Gross Sensation WNL Muscle Tone Muscle Tone WNL Yes M6 PT-IP Treatment Start: 04/05/23 15:57 Freq: NEEDED Status: Active Protocol: Document 04/05/23 15:00 AB (Rec: 04/05/23 16:10 [id number]) Physical Therapy Treatment Education Education Provided Precautions,Weight Bearing Status,Post-Op Packet,Safety M7 PT-IP Assessment and Plan Start: 04/05/23 15:57 Freq: NEEDED Status: Active Protocol: Document 04/05/23 15:00 AB (Rec: 04/05/23 16:10 AB [id number]) PT Summary Assessment and Plan Potential Rehabilitation Potential Good Status of Condition at Evaluation Evolving Summary Impairments Pain,ROM,Strength,Balance, Coordination,Sensation,Tone, Cognition,Bed Mobility, Transfers,Gait,Activity Tolerance Assessment Summary pt is a 62 y/o F s/p R TKA POD 0. pt is WBAT on RLE. pt requiring CGA to min A with mobility using FWW but unable to tolerate much activity due to c/o increase pain and feeling tired. pt plans to go home with spouse to assist. Pt will likely progress with mobility during hospital stay. caregiver training set up for tomorrow at ~ 1015 am. will continue to assess. pt stated that she has outpt PT set up already. Goals Bed Mobility Goal Independent Transfer Goal Independent,Front Wheeled Walker Gait Goal Independent,Front Wheel Walker Gait Distance 250 Other Goals improve transfers and ambulation using LRAD >300 ft mod I up/down 3 steps L rail ascending SBA Days to Meet Goals 5 Frequency of Treatment Frequency Of Treatment Twice a Day Treatment Plan Physical Therapy Treatment Plan Bed Mobility Training,Transfer Training,Gait Training, Therapeutic Exercise,Balance Retraining,Post Op Education, Discharge Planning,Hot or Cold Pack,Neuromuscular Re-ed, Coordination Retraining,Manual Therapy Weight Bearing Status Weight Bearing Status Weight Bear as Tolerated Allowed Weight Bearing Amount (enter % RLE WBAT or #) (%) Recommendations To Nursing Amount of Assist Needed 1 Person Assist Discharge Recommendations PT Discharge Recommendations Home with Assistance, Outpatient PT Transportation Needs at Discharge Private Vehicle
[2023-04-05] MEDS: LACTATED RINGERS 1,000 ML 100 ML IV (15:04)
[2023-04-05] MEDS: HYDROMORPHONE 2 MG TABLET PO ×2 (16:19→23:06)
[2023-04-05] MEDS: DULOXETINE 30 MG CAPSULE 60 MG PO (21:06)
[2023-04-05] MEDS: DOCUSATE 100 MG CAPSULE PO (21:06)
[2023-04-05] MEDS: ASPIRIN EC 81 MG TABLET PO (21:06)
[2023-04-06] MEDS: ACETAMINOPHEN 325 MG TABLET 650 MG PO ×2 (01:40→08:49)
[2023-04-06] MEDS: IBUPROFEN 400 MG TABLET PO ×3 (01:40→10:23)
[2023-04-06 01:49] VITALS: BP 121/73; PULSE 60; RESP 16; TEMP 37.1; O2SAT 95
[2023-04-06 04:37] LABS: Hematocrit 32.9 % (36-46); Hemoglobin 10.8 g/dL (12.0-16.0)
[2023-04-06] MEDS: CEFAZOLIN 2 GM/100 ML PREMIX 100 ML IV (05:03)
[2023-04-06] MEDS: HYDROMORPHONE 2 MG TABLET PO (05:03)
[2023-04-06 08:42] VITALS: BP 134/63; PULSE 56; RESP 18; TEMP 36.7; O2SAT 98
[2023-04-06] MEDS: estradioL 1 MG TABLET PO (08:49)
[2023-04-06] MEDS: ASPIRIN EC 81 MG TABLET PO (08:49)
[2023-04-06] MEDS: DOCUSATE 100 MG CAPSULE PO (08:49)
[2023-04-06] MEDS: MORPHINE ER 15 MG TABLET PO (08:49)
[2023-04-06] MEDS: DULOXETINE 30 MG CAPSULE 60 MG PO (08:49)
[2023-04-06] MEDS: polyethylene glycoL 3350 17 GM POWD.PACK PO (08:50)
--- NOTE | 2023-04-06 09:12 | OT.IP.EVAL ---
Current Diagnoses Unilateral primary osteoarthritis, right knee (04/05/23) Surgery Performed Operation Date: 04/05/23 10:45 Actual Procedures p Total Knee Arthroplasty - Robot(Right) - Amanda Islas MD Past Medical History (Last Updated 02/09/23 @ 13:59 by Jt Santoro MD) Age-related osteoporosis without current pathological fracture Anemia Anesthesia complication Anxiety Chronic, continuous use of opioids CRPS (complex regional pain syndrome type I) CRPS (complex regional pain syndrome) Easy bruisability Fatigue Heartburn Menopausal syndrome Miscarriage Mixed hyperlipidemia Primary osteoarthritis involving multiple joints Vitamin D deficiency Surgical History (Last Updated 03/29/23 @ 08:26 by Delores Lopez RN) History of arthroscopy of right shoulder History of bunionectomy of right great toe History of hysterectomy History of total left knee replacement (06/04/21) Hx of arthroscopy of left knee Hx of dilation and curettage Hx of laminectomy Occupational Therapy Inpatient Evaluation/Re-Eval M1 PT/OT-IP Prior Functional Status Start: 04/06/23 09:39 Freq: NEEDED Status: Active Protocol: Document 04/06/23 09:39 [facility] (Rec: 04/06/23 09:54 [facility] [id number]) Medical Review Prior Functional Status Medical History Reviewed Yes Communication able to make needs known Mobility and Gait pt stated that she was independent with all mobilities and ambulation without AD Activities of Daily Living and IADL's Independent Prior Functional Level (Other details) Pt to take time off of work to assist pt. Social History Household Members spouse,family Living Arrangements House Number of Floors (Floors) Two Floors Number of Stairs To Enter/Railing? pt stays on main level of the house 3 steps L rail ascending to enter the house Home Environment High Toilet,Walk in Shower, Built-In Shower Seat Home Equipment Front Wheel Walker,Shower Seat with Backrest,Hand Held Shower,Grab Bars In Shower Additional Social History Comment pt's spouse Guillermo will be off work to assist pt at home; pt' s mother lives with her but will not be able to assist pt pt has an adjustable bed M2 OT-IP Current Condition Start: 04/06/23 09:39 Freq: Status: Active Protocol: Document 04/06/23 09:39 [facility] (Rec: 04/06/23 09:54 [facility] [id number]) Occupational Therapy Current Condition Current Condition Evaluation Date 04/06/23 Treatment Diagnosis S/P R TKA Diagnosis Onset Date 04/05/23 M3 OT- IP Subjective and Pain Start: 04/06/23 09:39 Freq: Status: Active Protocol: Document 04/06/23 09:39 [facility] (Rec: 04/06/23 09:54 [facility] [id number]) OT- Subjective Occupational Therapy Visit Type Type Initial Evaluation Visit Start Time 09:12 Visit Stop Time 09:36 Occupational Therapy Visit Comments Patient Comments Pt agreed to use the bathroom and get dressed. Pt's present for caregiver training . Patient/Caregiver Goals TO go home. OT Pain Assessment Pain When Pain Assessed During Mobility Pain Present Pain Present Pain Reported Location General Intensity 5 Scale Used Numeric (0 - 10) M4 OT- IP ADL's Start: 04/06/23 09:39 Freq: Status: Active Protocol: Document 04/06/23 09:39 [facility] (Rec: 04/06/23 09:54 [facility] [id number]) OT [id number] General Evaluation Self-Feeding Ability Independent OT ADL-Grooming General Evaluation Grooming Ability Standby Assistance Areas Needing Assistance Retrieving/Set-up of Grooming Items Comments OT Grooming Comments Able to do while standing at the sink with FWW. OT ADL-Oral Care General Eval Oral Care Ability Independent OT ADL-Dressing General Eval Upper Body Dressing Ability Independent Lower Body Dressing Ability Standby Assistance Comments OT Dressing Comments Pt able to to do all her dressing needs and able to follow dressing her RLE first and take out last. OT ADL-Toileting General Evaluation Toileting Ability Standby Assistance Comments OT Toileting Comments Set-up assist for hygiene needs.Edcuated pt to be mindful of her right knee positioning during needs.Suggested to taper off drinking water at night. OT ADL-Bathing Comments OT Bathing Comments Pt states to do at home. M5 OT- IP IADL's Start: 04/06/23 09:39 Freq: Status: Active Protocol: Document 04/06/23 09:39 [facility] (Rec: 04/06/23 09:54 [facility] [id number]) OT-Instrumental Activities of Daily Living Deficits IADL Deficits Identified Deficits Home Safety Awareness Awareness of Need for Assistance at Home Good Awareness Ability to Problem Solve Emergency Able to Problem Solve Situations Medication Management Medication Management No Deficits Identified Money Management Money Management No Deficits Identified Meal Preparation Meal Preparation Comments Pt's to assist. [employer] Operations Center Technician [employer] Technician Comments Pt's to assist. M6 OT- IP Functional Cognition Start: 04/06/23 09:39 Freq: Status: Active Protocol: Document 04/06/23 09:39 [facility] (Rec: 04/06/23 09:54 [facility] [id number]) Cognitive Factors Limiting Selfcare Function Cognitive Ability Level of Alertness Alert Patient Orientation Name,Age,Birthday,Month,Date, Year,Day of Week,Place, Situation Attention Span Ability Capable of Focused Attention, Capable of Sustained Attention Ability to Follow Commands Able to Follow Multi-Step Commands Memory Description No Deficits Noted Safety Awareness No Deficits Noted Problem Solving Ability No deficits Noted Cognitive Comments Cognitive Assessment Comments Intact OT- Vision and Hearing OT- Hearing Assessment OT- Hearing Assessment WFL OT- Vision Assessment Visual Acuity Glasses All The Time Visual Attentiveness WFL Occular Pursuits WFL M7 OT- IP Mobility and Balance Start: 04/06/23 09:39 Freq: Status: Active Protocol: Document 04/06/23 09:39 [facility] (Rec: 04/06/23 09:54 [facility] [id number]) OT-Transfer Assessment Sit to and From Stand Sit to and from Stand Contact Guard Assistance Transfers Transfer Ability Standby Assistance,Contact Guard Assistance Technique Transfer Destination Bed,Chair,Toilet Transfer Technique Stand Step Pivot Devices Transfer Assistive Devices Gait Belt,Front Wheeled Walker OT- Balance Assessment Sitting Balance and Reactions Static Sitting Balance Ability Normal Dynamic Sitting Balance Ability Normal Standing Balance and Reactions Static Standing Balance Ability Good Dynamic Standing Balance Ability Fair M8 OT- IP Objective Assessments Start: 04/06/23 09:39 Freq: Status: Active Protocol: Document 04/06/23 09:39 [facility] (Rec: 04/06/23 09:54 [facility] [id number]) OT Gross Range of Motion Upper Extremity Range of Motion ROM Impairments WFL for ADL needs OT Strength Upper Extremity Strength Assessment Within Functional Limits M9 OT- IP Assessment and Plan Start: 04/06/23 09:39 Freq: Status: Active Protocol: Document 04/06/23 09:39 [facility] (Rec: 04/06/23 09:54 [facility] [id number]) OT Summary Assessment and Plan Potential Rehabilitation Potential Excellent Analytic Complexity at Evaluation Low Summary OT Impairments Pain,Balance,Functional Mobility,Dressing,Toileting, Bathing,Toilet Transfers, Shower Transfers,Activity Tolerance Progress Towards Goals Progressing Toward Goals Assessment Summary Pt low complexity and main barrier are pain and steps. Able to go over caregiver training with her how to neeta/doff the gait belt , how to assist pt for transfers and ADl needs. Pt after getting back to bed BP 160/77 and o2 on RA 100%. Pt to go home with assist when stable to go to outpt PT. Goals Dressing Goal Independent Toileting Goal Independent Bathing Goal Standby Assistance Toilet Transfer Goal Independent Shower Transfer Goal Standby Assistance Days to Meet Goals 3 Frequency of Treatment Frequency Of Treatment Once a Day Treatment Plan OT Treatment Plan ADL Training,Functional Mobility,Patient/Family Education,Discharge Planning Discharge Recommendations OT Discharge Recommendations Home with Assistance, Outpatient PT Transportation Needs at Discharge Private Vehicle
--- NOTE | 2023-04-06 09:35 | CM.DANOTE ---
Initial DCP Assessment Note Reviewed EMR and team rounds for status updates. Met with pt's spouse briefly at bedside to confirm d/c, pt was getting dressed and preparing to d/c home, spouse will transport. No identified DCP needs identified at this time. Payor: [facility] [employer] Attending: Amanda Islas Pt is a 62 year-old F placed in OPB following her R-knee total arthroplasty. Pt is doing well post-op day 1, she completed the pre-surgery PT visit, and has identified a provider for OP PT once home. She has all necessary DME, and pt's spouse has taken time off from work in order to provide for pt's care needs during the immediate post-op period. No further needs identified at this time. Discharge Planning/Care Management Advanced directive, confirm from FAMILY Start: 04/05/23 14:33 Freq: Q24H Status: Active Protocol: Document 04/05/23 15:06 BT (Rec: 04/05/23 15:08 BT [id number]) Advance Directive, confirm on record Time 15:07 Person contacted Pt Copy received No CM Discharge Assessment Start: 04/06/23 09:28 Freq: Status: Active Protocol: Document 04/06/23 09:28 DPL (Rec: 04/06/23 09:30 DPL [id number]) Discharge Planning Assessment Assigned [place]ac Operator PAMELA Blas Advance Directives? No Advance Directives on File No History Provided By Family Member,Medical Record Prior Living Arrangements House Household Members spouse,family Type of transporation used prior to Drives own vehicle admit Independent with ADL's Yes Is patient alert and oriented? Yes Caregiver for Another No Patient/Family Preference OP PT Therapy Discharge Plan Home Transportation Arrangement Spouse bedside and can transport at d/c Referrals Initiated None needed Review Status In Process Please Provide Date Initial DC 04/06/23 Assessment Was Performed Pre-Anesthesia Assessment Start: 03/29/23 08:20 Freq: Status: Active Protocol: Document 03/29/23 08:20 CAB (Rec: 03/29/23 08:51 CAB [id number]) Pre-Anesthesia Assessment Patient Information Reviewed Via Phone Assessment Assessment Completed With Patient Diagnostic Results BMP/CMP,CBC,EKG Comment Labs/ EKG @ [facility] 03/08/23 Primary Care Provider Jt Santoro Seen Specialist in Last 12 Months Yes Specialist Seen Orthopedist Primary Language Polish Preferred Language Polish Threshing Department Supervisor Required No Height 167.64 cm Weight 72.121 kg Body Mass Index (BMI) 25.7 Hearing Ability Normal Visual Assist Glasses Dentition Type Teeth, Natural Present,Teeth, Missing Barriers to Learning None Hx Anesthesia Reactions Yes: I've wokenup during surgery, allergies to multiple narcotics. Hx Family Anesthesia Reaction No Hx Malignant Hyperthermia No Hx Blood Transfusions No Hx Blood Transfusion Reaction No Anesthesia Review Requested No Sound Technician No alcohol intake former Smoking Status Former smoker Tobacco type cigarettes how long ago did patient quit smoking Quit 27 years ago Substance Use Type does not use,opiates, painkillers Pain Present Pain Reported Musculoskeletal Symptoms Abnormal Gait,Difficulty Walking,Joint Pain History of Falling (Recent or History of No ) Patient is completely paralyzed or No completely immobile Mental Status Oriented to own ability Is patient on oxygen? No Does patient have STEWART/SOB No Hx Sleep Apnea No CPAP/BIPAP use not prescribed Currently Taking a Beta Vahid No Can You Climb a Flight of Stairs Without Yes SOB Hx Chest Pain No Hx SOB No Hx Syncope or Dizziness No Anti-Coagulant Therapy No Has a Technician No Cardiac Testing No Hx Pacemaker/ICD No Pacemaker Rep Required? No Cardiac Clearance Received Not Applicable Diet Type At Home Regular Dysphagia No Gastrointestinal Symptoms Constipation Chronic UTI No Urinary Catheter Present No Hx Urinary Self Catheterization No Diabetes No HgbA1C 5.6 Date 03/08/23 Patient No Lactating No Hx Drug Resistant Organism No Presence of External or Internal Medical Yes: Left great toe, left knee Devices Received a COVID vaccine? Yes Received all doses? No Marital Status Lives With spouse,family Current Living Arrangements House Number of Floors (Floors) Two Floors Support System Spouse Does the Patient Have Assistance After Yes Surgery Patient Discharge Plan Description Return Home Comment Pt not advised on length of stay per surgeon Feels Safe in Current Environment Yes Been Physically Hurt or Threatened By a No Person in Current Environment Do you have thoughts of harming yourself None or others? Are you currently considering suicide? No Do you have a plan to hurt yourself or No Plan others? Do You Have Any Spiritual Beliefs That No May Affect Your HC Choices? Do You Have Any Cultural Practices That No May Affect Your HC Choices? Comment Restorationist Who Can We Speak to About Patient's Care Family, friends Identifying Code for Release of Patient Declines to issue Information Health Care Proxy/Next of Kin Luis Fernando () Health Care Proxy Emergency Contact Name Luis Fernando () Emergency Contact Advance Directives? No Advance Directives on File No Power of Digester No PAC Instructions Do not shave/clip surgical site,Durable medical equipment ,Medications to take/avoid, Nasal antibiotic,No ETOH/ petroleum product on skin DOS, NPO,Pre-surgical wash,Sensory aids,Sturdy shoes/comfortable clothes,Do not bring valuables and remove jewelry
[2023-04-06] MEDS: ONDANSETRON 4 MG ODT PO (09:52)
--- NOTE | 2023-04-06 10:13 | PT.IPTN ---
Current Diagnoses Unilateral primary osteoarthritis, right knee (04/05/23) Surgery Performed Operation Date: 04/05/23 10:45 Actual Procedures p Total Knee Arthroplasty - Robot(Right) - Amanda Islas MD Physical Therapy Treatment Note M2 PT-IP Current Condition Start: 04/05/23 15:57 Freq: NEEDED Status: Active Protocol: Document 04/05/23 15:00 AB (Rec: 04/05/23 16:10 AB [id number]) Physical Therapy Current Condition Current Condition Evaluation Date 04/05/23 Treatment Diagnosis s/p R TKA; difficulty in walking Onset Date 04/05/23 M3 PT-IP Subjective Start: 04/05/23 15:57 Freq: NEEDED Status: Active Protocol: Document 04/06/23 10:40 ZF (Rec: 04/06/23 10:53 ZF [id number]) Subjective Physical Therapy Visit Type Type Treatment Note Visit Start Time 10:13 Visit Stop Time 10:35 Number of HORSE TREKKING GUIDE Visits 1 Physical Therapy Visit Comments Patient Comments Pt motivated for therapy. Therapy Pain Assessment Pain When Pain Assessed During Mobility Pain Present Pain Present Pain Reported Location Right Knee Pain Behaviors Facial Grimacing,Guarding Pain Management Techniques Apply Cold,Distraction, Modification of Treatment,Re- positioning,Timing of Activity with Medications M4 PT-IP Mobility and Gait Start: 04/05/23 15:57 Freq: NEEDED Status: Active Protocol: Document 04/06/23 10:40 ZF (Rec: 04/06/23 10:53 ZF [id number]) PT-Transfer Assessment Sit to and From Stand Sit to and from Stand Contact Guard Assistance,1 Person Assistance,Use of Upper Extremities Equipment Transfer Assistive Device Gait Belt,Front Wheeled Walker Orthotic/Prosthetic Devices or Brace: No Transfers Transfer Destination Wheelchair Transfer Technique Stand Step Pivot Transfer Ability Level of Assist Standby Assistance,Contact Guard Assistance,1 Person Assistance,Use of Upper Extremities Comments Mobility Comments Pt sitting EOB when approached for therapy. present for caregiver training. Pt requests pain meds and nurse provides them before mobility. Discussed any concerns pt has , reports that she has a ramp w/BL HR to get into her home, but would like to review stairs. donns gait belt, provides CGA for mobility, with therapist following w/WC. Pt amb in hallway 2x60' w/2ww, CGA. Asc/ shreyas x3 stairs using BL HR, CGA . Pt educated on proper sequencing of steps w/good carryover. Gait Assessment Gait Gait Assistance Required: Standby Assistance,Contact Guard Assist,1 Person Assist Distance (Feet) 12 Able to Maintain Weight Bearing Status Yes During Gait Assistive Devices Assistive Device Gait Belt,Front Wheeled Walker Orthotic/Prosthetic Devices or Brace: No Gait Deviations General Gait Pattern Antalgic,Decreased Feet Clearance,Step-to Gait Factors Limiting Gait Function Factors Limiting Gait Function Decreased Activity Tolerance, Decreased Strength,Limited Range of Motion,Pain PT-Balance Assessment Sitting Balance and Reactions Static Sitting Balance Ability Normal Dynamic Sitting Balance Ability Normal Standing Balance and Reactions Static Standing Balance Ability Good Dynamic Standing Balance Ability Fair Device Used FWW M5 PT-IP Objective Assessments Start: 04/05/23 15:57 Freq: NEEDED Status: Active Protocol: Document 04/05/23 15:00 AB (Rec: 04/05/23 16:10 AB [id number]) Orientation Orientation/Cognition Level of Alertness Alert Orientation Name,Place,Situation Language Function Ability No Deficits Noted Safety Awareness Decreased Safety Awareness Memory Description No Deficits Noted Gross Range of Motion Lower Extremity ROM Assessment Right Impaired Impairments R knee flexion: ~ 60 deg : increase guarding and c/o increase pain with movement Strength Lower Extremity Strength Assessment Right Impaired Hip 4-/5 Knee 4-/5 Coordination Assessment Gross Coordination Gross Coordination WNL Sensation Assessment Sensation Gross Sensation WNL Muscle Tone Muscle Tone WNL Yes M6 PT-IP Treatment Start: 04/05/23 15:57 Freq: NEEDED Status: Active Protocol: Document 04/06/23 10:40 ZF (Rec: 04/06/23 10:53 [id number]) Physical Therapy Treatment Education Education Provided Safety M7 PT-IP Assessment and Plan Start: 04/05/23 15:57 Freq: NEEDED Status: Active Protocol: Document 04/06/23 10:40 ZF (Rec: 04/06/23 10:53 [id number]) PT Summary Assessment and Plan Potential Rehabilitation Potential Good Status of Condition at Evaluation Evolving Summary Impairments Pain,ROM,Strength,Balance, Coordination,Sensation,Tone, Cognition,Bed Mobility, Transfers,Gait,Activity Tolerance Assessment Summary Pt amb 2x60' and asc/shreyas x3 steps w/CGA assist from . is positive and helpful, receptive to CG training. Discussed home set up and equipment. Pt reports feeling good about DC home today. Goals Bed Mobility Goal Independent Transfer Goal Independent,Front Wheeled Walker Gait Goal Independent,Front Wheel Walker Gait Distance 250 Other Goals improve transfers and ambulation using LRAD >300 ft mod I up/down 3 steps L rail ascending SBA Days to Meet Goals 5 Frequency of Treatment Frequency Of Treatment Twice a Day Treatment Plan Physical Therapy Treatment Plan Bed Mobility Training,Transfer Training,Gait Training, Therapeutic Exercise,Balance Retraining,Post Op Education, Discharge Planning,Hot or Cold Pack,Neuromuscular Re-ed, Coordination Retraining,Manual Therapy Weight Bearing Status Weight Bearing Status Weight Bear as Tolerated Allowed Weight Bearing Amount (enter % RLE WBAT or #) (%) Recommendations To Nursing Amount of Assist Needed Standby Assistance Discharge Recommendations PT Discharge Recommendations Home with Assistance, Outpatient PT Transportation Needs at Discharge Private Vehicle
[2023-04-06] MEDS: HYDROMORPHONE 4 MG TABLET PO (10:23)
--- NOTE | 2023-04-06 17:16 | PM.DS.1 ---
History of Present Illness History of Present Illness Date Patient Seen: 04/06/23 Time Patient Seen: 08:30 Chief complaint: OPB Narrative: Procedure: Right total knee arthroplasty Same procedure as scheduled: Yes Indications: The patient has had progressively worsening right knee pain with radiographic changes consistent with arthritis. Non-operative management has failed and the patient has requested total knee replacement. The risks, benefits and alternatives to surgery were discussed with the patient prior to proceeding. Risks discussed included, but were not limited to, failure to relieve pain, stiffness, infection, nerve damage, deep venous thrombosis, pulmonary embolism, stroke, coma, heart attack, permanent paralysis and , as well as the potential need for eventual revision of the prosthetic. Surgeon: Amanda Islas Convention Services Director: Nomi Yarbrough Anesthesia Type: General and Spinal Operative Notes Findings: Severe right knee osteoarthritic change, good stability and range motion Closure Type: primary Specimen(s): none sent Prosthetic devices, grafts, tissues, transplants, or devices: Islas and nephjesi gutiérrez BCS 2 size 5 femur, size 3 tibia, +9 poly, 35 x 7-1/2 mm patella Estimated Blood Loss (mL): 250 Blood products transfused: none Tourniquet time (min): 93 Margarita has no complaints of pain with regards to her right knee. Says overall her knee pain has improved since preop. Denies any numbness or tingling of the right lower extremity. Denies any fever or chills. Discharge Providers Provider Date of admission: 04/05/2023 Discharge Date: 04/06/23 Primary care physician: Jt Santoro MD Consults: 04/05/23 06:00 Consult to Anesthesiology Routine Comment: Consulting Provider: Anesthesiologist Reason for consultation: Regional block for post operative pain control 04/05/23 14:33 Consult to Discharge Planning Routine Comment: Consult to Occupational Therapy Evaluate & Treat Comment: Physician Instructions: Evaluate and treat Consult to Physical Therapy Evaluate & Treat Comment: Physician Instructions: postop TKA protocol Discharge provider: Butch Roman PA-C Summary Hospital Course Discharge Diagnosis: Status post right knee total arthroplasty Hospital Course: Pain management. Physical therapy. Status at Discharge Cognitive/behavioral status at discharge: oriented Functional status at discharge: independent ambulation Time Spent with Patient Time spent: Less than 30 minutes Exam Vital Signs (past 8 hours): Oxygen Delivery Method Room Air Oxygen Flow Rate 0 Narrative Exam Narrative: Patient is found sitting in a chair. Removing the Devon bandage provided immediate relief. Dressing appears to be well-maintained. No signs of drainage. Limited range of motion from 10-70 degrees of the right knee. Sensation is grossly intact to the right lower extremity. Able to dorsiflex and plantar flex against resistance at the right ankle. Objective Labs 04/06/23 04:29 Labs: Laboratory Results - last 24 hr 04/06/23 04:29 Hgb 10.8 L Hct 32.9 L PFSH Medical History (Updated 02/09/23 @ 14:01 by Jt Santoro MD) Age-related osteoporosis without current pathological fracture Mixed hyperlipidemia Menopausal syndrome Primary osteoarthritis involving multiple joints Chronic, continuous use of opioids Anemia Fatigue Vitamin D deficiency CRPS (complex regional pain syndrome) Anesthesia complication Anxiety Easy bruisability Miscarriage Heartburn CRPS (complex regional pain syndrome type I) Surgical History (Updated 03/29/23 @ 08:26 by Delores Lopez RN) History of total left knee replacement (06/04/21) History of bunionectomy of right great toe Hx of arthroscopy of left knee Hx of laminectomy History of arthroscopy of right shoulder Hx of dilation and curettage History of hysterectomy 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 The patient will receive aspirin 81mg bid for DVT prophylaxis. The patient will be discharged home when safe for the home environment. Patient is already taking Dilaudid at home for general pain control prescribed by an outside provider. She currently has enough medications. Start physical therapy in 3-7 days. Follow up with [facility] in 2 weeks for wound check. Discharge Plan Discharge Plan Patient Disposition: Home Provider Discharge Comment: DC pending PT approval Discharge orders & Medications Discharge Orders: Discharge (Order); Ordered 04/06/23 Ordered By: Butch Roman Prescriptions: Continued morphine 15 mg tablet extended release 15 mg PO TID Qty: 90 0RF hydromorphone 2 mg tablet 2 mg PO QID PRN (Reason: Pain) Qty: 90 0RF duloxetine 60 mg capsule,delayed release(DR/EC) 60 mg PO BID Qty: 180 3RF estradiol [Estrace] 1 mg tablet 1 mg PO DAILY Qty: 90 3RF acetaminophen 500 mg Tablet 1,000 mg PO Q6H PRN (Reason: Pain) ibuprofen [Motrin IB] 200 mg Tablet 400 mg PO Q6H PRN (Reason: Pain) Follow up/Referrals: Jt Santoro MD [Primary Care Provider] - Diet/Activity/Treatments Diet: Diet as Tolerated Activity: Ambulate as tolerated Cold/Heat Therapy: Ice over surgical site as needed for pain relief. Skin/Wound/Dressing Care Report to your healthcare provider any signs of infection, such as:: chills, fever, night sweats, unusual drainage and unusual redness Dressing: May shower. Keep dressing as dry as possible. If dressing becomes wet or dirty, remove and replace with clean, dry gauze. Visit Report/Discharge Packet Instructions: DI for Knee Replacement Stand Alone Forms: Patient Portal/API, Surgery Discharge Discharge Data Primary Care Provider: Jt Santoro V Attending Provider: Amanda Islas
== END 2023-04-06 11:26 | disposition home or self-care (01) ==
LOC: OR 08:46 → AC 08:46
PROVIDERS: PCP Internal Medicine; Referring Provider Orthopaedic Surgery; Visit Provider Orthopaedic Surgery
PROC: 0SRC0JZ Replacement of Right Knee Joint with Synthetic Substitute, Open Approach (ICD-10-PCS; CPT 27447; principal; 2023-04-05 10:45)
DX: M17.11 Unilateral primary osteoarthritis, right knee (principal); G90.521 Complex regional pain syndrome I of right lower limb; Z96.652 Presence of left artificial knee joint
CPT/HCPCS: 27447; 36415; 64450; 73560; 85014; 85018; 97116; 97162; 97165; 97530; C1776; C9290; J0171; J0690; J1100; J1170; J2250; J2274; J2405; J2704; J3010

== ENCOUNTER 2023-07-05 10:08 | Day surgery (SDC) | payer OTHER, SELFPAY ==
[2021-06-04 15:09] VITALS: BMI 25.9
[2023-04-05 08:48] VITALS: BMI 25.8
--- NOTE | 2023-07-05 11:15 | PM.HP.1 ---
History of Present Illness History of Present Illness Date Patient Seen: 07/05/23 Time Patient Seen: 11:15 Chief complaint: SDC Narrative: 62-year-old woman with chronic GERD here for screening esophagogastroduodenoscopy and colonoscopy. Takes 40 mg of omeprazole daily recently having breakthrough episodes. No family history of intestinal malignancy. [facility] Medical History (Updated 07/05/23 @ 11:17 by Manjeet Parikh MD) B12 deficiency Osteopenia Age-related osteoporosis without current pathological fracture Mixed hyperlipidemia Menopausal syndrome Primary osteoarthritis involving multiple joints Chronic, continuous use of opioids Anemia Fatigue Vitamin D deficiency CRPS (complex regional pain syndrome) Anesthesia complication Anxiety Easy bruisability Miscarriage Heartburn CRPS (complex regional pain syndrome type I) Surgical History History of total left knee replacement (06/04/21) History of bunionectomy of right great toe Hx of arthroscopy of left knee Hx of laminectomy History of arthroscopy of right shoulder Hx of dilation and curettage History of hysterectomy Social History details: , 3 kids, 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 household members: spouse and family Smoking Status: Former smoker alcohol intake: former Meds Home Medications and Allergies Home Medications Medication Instructions Recorded Confirmed Type acetaminophen 500 mg tablet 1,000 mg PO Q6H PRN Pain 03/29/23 05/10/23 History ibuprofen 200 mg tablet (Motrin IB) 400 mg PO Q6H PRN Pain 03/29/23 05/10/23 History duloxetine 60 mg capsule,delayed 60 mg PO BID #180 caps 05/10/23 05/10/23 Rx release estradiol 1 mg tablet (Estrace) 1 mg PO DAILY #90 tabs 05/10/23 05/10/23 Rx hydromorphone 2 mg tablet 2 mg PO QID #90 tabs 06/24/23 Rx morphine 15 mg tablet,extended 15 mg PO TID #90 tabs 07/04/23 Rx release Allergies Allergy/AdvReac Type Severity Reaction Status Date / Time codeine Allergy Severe Itching, Verified 05/10/23 12:32 bad headaches hydrocodone Allergy Severe Anaphylaxis Verified 05/10/23 12:32 oxycodone Allergy Severe Anaphylaxis Verified 05/10/23 12:32 propoxyphene Allergy Severe Anaphylaxis Verified 05/10/23 12:32 [From Darvocet-N] pregabalin [From Lyrica CR] Allergy Intermediate Swelling, Verified 05/10/23 12:32 increases CRPS penicillin V Allergy Mild itchy Verified 05/10/23 12:32 Penicillins Allergy Unknown Rash Verified 05/10/23 12:32 Exam Narrative Exam Narrative: General adult man alert oriented no acute distress Chest nonlabored respiration Extremities warm well perfused Assessment & Plan Assessment and plan (1) Screening for colorectal cancer: Status: Acute (2) Heartburn: Status: Acute Assessment & Plan narrative: Screening colonoscopy and esophagogastroduodenoscopy indicated. Technical details were discussed. Risks, benefits, alternatives explained. Risks including but not limited to myocardial infarction, aspiration, bleeding, pain, missed lesion, incomplete examination, need for further radiographic studies, intestinal injury, and need for major abdominal surgery were discussed. All questions were answered to their satisfaction, and they are in agreement with this plan.
--- NOTE | 2023-07-05 11:17 | P.OP.EGD&C_ITS ---
Operative Date/Time/Diagnoses Date of procedure: 07/05/23 Time of procedure: 11:17 Pre-op diagnosis: Colorectal screening Chronic GERD Procedure & Clinicians Study performed: Screening esophagogastroduodenoscopy and colonoscopy Indications: Chronic GERD Colorectal screening Surgeon: Manjeet Parikh Procedure Notes Procedure in detail: The history and physical was performed/updated and the patient is ASA class is 2. The procedure was discussed in detail with the patient. Potential risks c omplications including infection, bleeding, missed diagnosis, perforation, need for surgery, and were explained. Their questions were answered and informed consent was obtained. Patient placed in left lateral decubitus position. Time out was performed. Procedural sedation was administered by Anesthesia. A bite block was placed. the scope was inserted into the mouth and advanced through the esophagus and into the stomach. the pylorus was intubated and the duodenum was examined to the 2nd portion.. The scope was retroflexed within the stomach. The stomach was then decompressed and scope pulled back to the GE junction. The scope was then removed Examination began with a thorough inspection of the perianal area there was no evidence of fissures, fistulae, external hemorrhoids or cutaneous malignancy. The colonoscopy scope was then placed into the anal canal and was advanced to the cecum, which was identified by the ileocecal valve, the appendiceal orifice and the confluence of the taenia. The scope was then slowly withdrawn examining colon thoroughly in all directions, irrigating it of any residual stool. FINDINGS -unremarkable upper endoscopy. Normal stomach duodenum and esophagus -normal colonoscopy. No masses polyps or inflammation. Normal colorectal anastomosis The patient tolerated the procedure well. They will be discharged once criteria are met. The prep was of fair quality. The withdrawl time was 6 minutes. Specimen(s): none sent Impression: Normal upper and lower endoscopy. Post-procedure Recommendations: Colonscopy in 10 years Disposition: same day surgery
== END 2023-07-05 11:00 | disposition home or self-care (01) ==
PROVIDERS: PCP Internal Medicine; Referring Provider Surgery; Visit Provider Surgery

== ENCOUNTER → 2023-11-11 13:44 | Outpatient (CLI) | payer OTHER, SELFPAY ==
[2023-04-05 08:48] VITALS: BMI 25.8
--- NOTE | 2023-11-11 13:46 | DI.RAD.S_ITS ---
PROCEDURE: XR CHEST 2V INDICATIONS: dyspnagia TECHNIQUE: 2 views of the chest were acquired. COMPARISON: None. FINDINGS: Surgical changes and devices: None. Lungs and pleura: Lungs are clear. No pleural effusions or pneumothorax. Mediastinum: Mediastinal contours are normal. Heart size is normal. Bones and chest wall: No suspicious bony abnormalities. Soft tissues appear unremarkable. IMPRESSION: No acute cardiopulmonary abnormality is seen. Dictated by: Emerson Valverde M.D. on 11/13/2023 at 8:29 Approved by: Emerson Valverde M.D. on 11/13/2023 at 8:30
--- NOTE | 2023-11-11 13:47 | DI.MG.S_ITS ---
BILATERAL DIGITAL SCREENING MAMMOGRAM 3D/2D WITH CAD: 11/11/2023 CLINICAL: Routine screening. Comparison is made to exams dated: 08/27/2022 mammogram, 01/10/2020 mammogram - [facility], 10/06/2017 mammogram, and 09/02/2016 mammogram - outside location. There are scattered areas of fibroglandular density in both breasts (category b / 25%-50% glandular tissue). Current study was also evaluated with a Computer Aided Detection (CAD) system. No significant masses, calcifications, or other findings are seen in either breast. There has been no significant interval change. IMPRESSION: NEGATIVE There is no mammographic evidence of malignancy. A 1 year screening mammogram is recommended. Based on the Tyrer Cuzick model (a risk assessment model) the patient's lifetime risk is 5.2% and her 10 year risk is 2.3%. According to the ACR, ACS, and NCCN guidelines, an annual breast MRI exam along with mammogram is recommended if the patient's lifetime risk is 20% or greater. This exam was interpreted at Station ID: [id number]. NOTE: For mammograms, a report in lay terms will be sent to the patient. Approximately 15% of breast malignancies will not be visualized mammographically. In the management of a palpable breast mass, a negative mammogram must not discourage biopsy of a clinically suspicious lesion. Electronically Signed By: Duong post/herman:11/11/2023 16:38:20 copy to: DENISE LEON letter sent: Normal Exam ACR BI-RADS Category 1: Negative [id number]
== END ==
PROVIDERS: PCP Internal Medicine; Referring Provider Internal Medicine; Visit Provider Internal Medicine
DX: Z12.31 Encounter for screening mammogram for malignant neoplasm of breast (principal); R13.10 Dysphagia, unspecified
CPT/HCPCS: 71046; 77063; 77067

== ENCOUNTER → 2024-01-02 09:37 | Outpatient (CLI) | payer OTHER, SELFPAY ==
[2023-04-05 08:48] VITALS: BMI 25.8
--- NOTE | 2024-01-02 09:38 | DI.RAD.S_ITS ---
PROCEDURE: FL UPPER GI SERIES INDICATIONS: dysphagia COMPARISON: None. 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 No suspicious abdominal calcifications. Visualized solid organ contours appear normal. Bony structures appear unremarkable. Esophagus: Esophageal mucosa is normal on air-contrast views. On single-contrast views, there is moderate esophageal dysmotility with tertiary non-propulsive contractions. There is narrowing at the gastroesophageal junction that does not allow for passage of a calibrated barium tablet. No extrinsic mass effects or diverticula. No hiatal hernia. Spontaneous gastroesophageal reflux. Stomach: The stomach is normally distensible, with normal rugal fold thickness. No mucosal masses or ulcers. Pylorus and duodenal bulb appear normal in morphology. Duodenal folds are normal in thickness as well. IMPRESSION: 1. Stenosis at the gastroesophageal junction does not allow for passage of a calibrated barium tablet. 2. Moderate esophageal dysmotility. 3. Spontaneous gastroesophageal reflux. Approved by: Jaime Doe M.D. on 01/02/2024 at 12:16
== END ==
PROVIDERS: PCP Internal Medicine; Referring Provider Internal Medicine; Visit Provider Internal Medicine
DX: K22.2 Esophageal obstruction (principal); R13.10 Dysphagia, unspecified; K22.4 Dyskinesia of esophagus; K21.9 Gastro-esophageal reflux disease without esophagitis
CPT/HCPCS: 74240

== ENCOUNTER 2024-01-06 14:25 | Day surgery (SDC) | payer OTHER, SELFPAY ==
[2023-04-05 08:48] VITALS: BMI 25.8
[2024-01-06 15:01] VITALS: BP 161/88; PULSE 73; RESP 16; TEMP 36.2; O2SAT 99
--- NOTE | 2024-01-06 15:24 | PM.HP.1 ---
History of Present Illness History of Present Illness Date Patient Seen: 01/06/24 Time Patient Seen: 15:25 Chief complaint: [facility] Narrative: 63-year-old woman seen today for esophageal dysphagia. Difficulty swallowing progressing over the past several months. She underwent a barium swallow which demonstrated failure of the tablet to pass through the distal esophagus. [facility] Medical History Dysphagia B12 deficiency Osteopenia Mixed hyperlipidemia Menopausal syndrome Primary osteoarthritis involving multiple joints Chronic, continuous use of opioids Anemia Fatigue Vitamin D deficiency CRPS (complex regional pain syndrome) Anesthesia complication Anxiety Easy bruisability Miscarriage Heartburn CRPS (complex regional pain syndrome type I) Surgical History History of total left knee replacement (06/04/21) History of bunionectomy of right great toe Hx of arthroscopy of left knee Hx of laminectomy History of arthroscopy of right shoulder Hx of dilation and curettage History of hysterectomy Social History details: , 3 kids, former [employer] household members: spouse and family Smoking Status: Former smoker alcohol intake: former Meds Home Medications and Allergies Home Medications Medication Instructions Recorded Confirmed Type ibuprofen 200 mg tablet (Motrin IB) 400 mg PO Q6H PRN Pain 03/29/23 01/06/24 History duloxetine 60 mg capsule,delayed 60 mg PO BID #180 caps 05/10/23 01/06/24 Rx release estradiol 1 mg tablet (Estrace) 1 mg PO DAILY #90 tabs 05/10/23 01/06/24 Rx topiramate 25 mg tablet 25 mg PO .1 po am 2 po pm #270 tabs 08/15/23 11/08/23 Rx hydromorphone 2 mg tablet 2 mg PO QID PRN Pain #90 tabs 11/08/23 11/08/23 Rx hydromorphone 2 mg tablet 2 mg PO QID PRN pain #90 tabs 11/08/23 11/08/23 Rx hydromorphone 2 mg tablet 2 mg PO QID PRN pain #90 tabs 11/08/23 01/06/24 Rx morphine 15 mg tablet,extended 15 mg PO TID #90 tabs 11/08/23 11/08/23 Rx release morphine 15 mg tablet,extended 15 mg PO TID #90 tabs 11/08/23 11/08/23 Rx release morphine 15 mg tablet,extended 15 mg PO TID #90 tabs 11/08/23 01/06/24 Rx release Allergies Allergy/AdvReac Type Severity Reaction Status Date / Time codeine Allergy Severe Itching, Verified 01/06/24 14:53 bad headaches hydrocodone Allergy Severe Anaphylaxis Verified 01/06/24 14:53 oxycodone Allergy Severe Anaphylaxis Verified 01/06/24 14:53 propoxyphene Allergy Severe Anaphylaxis Verified 01/06/24 14:53 [From Darvocet-N] pregabalin [From Lyrica CR] Allergy Intermediate Swelling, Verified 01/06/24 14:53 increases CRPS penicillin V Allergy Mild itchy Verified 01/06/24 14:53 Penicillins Allergy Unknown Rash Verified 01/06/24 14:53 Exam Vital Signs (past 8 hours): - 01/06/24 15:01 Temperature 97.2 F L Pulse Rate 73 Respiratory Rate 16 Blood Pressure 161/88 H Pulse Oximetry 99 Oxygen Delivery Method Room Air Oxygen Delivery Method Room Air Narrative Exam Narrative: General adult woman alert oriented no acute distress Chest nonlabored respiration Extremities warm well perfused Assessment & Plan Assessment and plan (1) Dysphagia: Qualifiers: Dysphagia type: esophageal phase Qualified Code(s): R13.19 - Other dysphagia Status: Acute Assessment & Plan narrative: 63-year-old woman with an esophageal stricture here for diagnostic esophagogastroduodenoscopy with likely dilation. Technical details were discussed. Risks, benefits, alternatives explained. Risks including but not limited to myocardial infarction, aspiration, bleeding, pain, missed lesion, incomplete examination, need for further radiographic studies, intestinal injury, and need for major abdominal surgery were discussed. All questions were answered to their satisfaction, and they are in agreement with this plan. Time-Based Coding :: [TOTAL MINUTES] spent with patient and on the chart (including review of chart, obtaining history, exam, reviewing outside data, placing orders, documenting exam and treatment plan, and counseling patient) on [DATE].
--- NOTE | 2024-01-06 15:29 | PM.OP.EGD ---
Operative Date/Time/Diagnoses Date of procedure: 01/06/24 Time of procedure: 15:29 Pre-op diagnosis: Esophageal stricture Procedure & Clinicians Study performed: Esophagogastroduodenoscopy with esophageal dilation Same procedure as scheduled: Yes Indications: 63-year-old woman with progressive esophageal dysphagia found to have stricture on barium swallow Surgeon: Manjeet Parikh Procedure Notes Procedure in detail: The history and physical was performed/updated and the patient is ASA class is 2. The procedure was discussed in detail with the patient. Potential risks complications including infection, bleeding, missed diagnosis, perforation, need for surgery, and were explained. Their questions were answered and informed consent was obtained. Patient placed in left lateral decubitus position. Time out was performed. Procedural sedation was administered by Anesthesia. A bite block was placed. the scope was inserted into the mouth and advanced through the esophagus and into the stomach. The pylorus was intubated and the duodenum was examined to the 2nd portion. The scope was then withdrawn into the stomach and was retroflexed. The stomach was decompressed and scope was withdrawn slowly through the esophagus. FINDINGS -mild distal esophageal narrowing, the scope easily passes into the stomach. The stricture was gradually dilated with the balloon dilator under direct visualization to a maximum of 20 mm. The patient tolerated the procedure well and will be discharged when they meet criteria. Specimen(s): none sent Impression: Esophageal stricture Post-procedure Disposition: same day surgery
[2024-01-06 16:03] VITALS: BP 130/84; PULSE 68; RESP 14; TEMP 36.2; O2SAT 98
[2024-01-06 16:08] VITALS: BP 160/77; PULSE 67; RESP 12; O2SAT 98
[2024-01-06 16:12] VITALS: BP 123/81; PULSE 60; RESP 15; O2SAT 98
[2024-01-06 16:13] VITALS: BP 128/78; PULSE 58; RESP 14; TEMP 36.6; O2SAT 98
== END 2024-01-06 16:32 | disposition home or self-care (01) ==
PROVIDERS: PCP Internal Medicine; Referring Provider Surgery; Visit Provider Surgery
PROC: 0DJ08ZZ Inspection of Upper Intestinal Tract, Via Natural or Artificial Opening Endoscopic (ICD-10-PCS; CPT 43249; principal; 2024-01-06 15:30)
DX: K22.2 Esophageal obstruction (principal); R13.19 Other dysphagia
CPT/HCPCS: 43249; J2704

== ENCOUNTER → 2024-04-30 15:02 | Outpatient (CLI) | payer OTHER, SELFPAY ==
[2023-04-05 08:48] VITALS: BMI 25.8
[2024-04-30 15:36] LABS: Hematocrit 39.3 % (36-46); Hemoglobin 12.6 g/dL (12.0-16.0); Mean Corpuscular HGB Conc 32.1 % (30-36); Mean Corpuscular Hemoglobin 29.6 PG (26-34); Mean Corpuscular Volume 92.1 fL (80-100); Platelet Count 276 X10^3/uL (150-400); Red Blood Cell Count 4.27 X10^6/uL (4.0-5.2); Red Cell Distribution Width 13.6 % (11.6-14.8); White Blood Cell Count 5.4 X10^3/uL (4.5-11.0)
[2024-04-30 16:28] LABS: Erythrocyte Sedimentation Rate 6 MM/HR (0-20)
[2024-04-30 17:24] LABS: Alanine Aminotransferase 17 IU/L (<35); Albumin 4.4 g/dL (3.5-5.0); Albumin Globulin Ratio 1.6 (1.0-2.8); Alkaline Phosphatase 59 U/L (38-126); Aspartate Aminotransferase 26 IU/L (14-36); BUN Creatinine Ratio 18.9 (6-22); Bilirubin Total 0.4 mg/dL (0.2-1.3); Blood Urea Nitrogen 18 mg/dL (7-17); C-Reactive Protein Quant < 0.5 mg/dL (<1.0); Calcium 9.4 mg/dL (8.4-10.2); Carbon Dioxide 26 mmol/L (22-32); Chloride 105 mmol/L (98-107); Cholesterol 210 mg/dL (140-199); Estimated Glomerular Filt Rate > 60 mL/min (>60); Globulin 2.8 g/dL (1.7-4.1); Glucose 116 mg/dL (80-110); HDL Cholesterol 102 mg/dL (40-60); HEMOLYSIS < 15 (0-50); LDL Cholesterol Calculated 89 mg/dL (<100); Sodium 139 mmol/L (137-145); Total Protein 7.2 g/dL (6.3-8.2); Triglycerides 94 mg/dL (35-150)
[2024-04-30 18:10] LABS: Vitamin B12 Reflex MMA if <400 334 pg/mL (239-931)
[2024-04-30 18:15] LABS: TSH w/ Reflex to FT4 0.88 uIU/mL (0.47-4.68)
== END ==
PROVIDERS: PCP Internal Medicine; Referring Provider Internal Medicine; Visit Provider Internal Medicine
DX: E78.2 Mixed hyperlipidemia (principal); M85.80 Other specified disorders of bone density and structure, unspecified site; E53.8 Deficiency of other specified B group vitamins
CPT/HCPCS: 36415; 80053; 80061; 82607; 83921; 84443; 85027; 85651; 86140

== ENCOUNTER → 2024-07-17 12:45 | Outpatient (CLI) | payer OTHER, SELFPAY ==
[2023-04-05 08:48] VITALS: BMI 25.8
--- NOTE | 2024-07-18 15:24 | DIET.OUTPTC ---
Dietary Outpatient Consultation Note Consultation Date: 07/17/2024 Assessment:? 63 y F referred to dietitian for dyskinesis of esophagus. Pt w/ hx of achalasia per GI note. Pt reports wanting to improve protein intake and PO intakes through small freq meals but difficulty doing so d/t food restrictions r/t achalasia. Symptoms of food regurgitation with 3-4x/wk when eating foods not tolerated i.e white rice, non tender veggies etc. Happen right after eating. No recent weight loss. Reports some weight gain. Normal BMI for age. Tried a diet dec-feb 2024 of veg and protein based foods for weight loss. Difficulty tolerating the food options (i.e shakes and protein bars and raw veggies and salads, but notes some improved energy levels d/t freq meals. Difficulty sleeping d/t CRPS, a few hours a night. Diet recall: B-cherrios and 1/4 c cows milk (tolerates this well, no symptoms) L- half pb sandwich or 1/2 quesd. w/ cheese and flour tortilla D-3 oz of chx or beef or pork -meat is diced up - or 1 egg. No seafood, salad (doesn't tolerate well) or cooked veg (tolerates better), potatoes (very small portion 1/2 c or less) Ice cream (tolerates well) root beer a few times per week, carbonation helps food settle 2 cups black coffee Constipation with 1-2 bowel movements per day of type 1 on bristol stool chart Ht:?5 ft 6 in? Wt:?153 lb? BMI: 24.7? Nutrition Diagnosis:? Food and nutrition related knowledge deficit r/t no formal nutrition educ on nutritional management with current condition aeb pt wanting to improve PO intakes but difficulty tolerating some foods Inadequate fiber intake d/t decreased tolerance for fiber filled foods aeb <20 g fiber per day Interventions:? Discussed and provided handout on the following: -Foods that may be best tolerated, soft foods, liquids, and foods in sauces or broths -Foods that may congeal (white rice, white bread products, potato chips, etc) or cause irritation (spicy, chocolate, citrus, too hot or too cold) -Small freq meals and brainstormed food ideas -Protein needs and protein based foods tolerated -Fiber needs and tolerated sources Goals: Add in 1-2 additional protein+fiber snacks (ex-soft skinless fruit/yogurt, cooked oats and pb) between meals 64 fluid ounces water, can include sugar free carbonated water Avoid known triggers like white rice and uncooked veggies and keep a symptom journal when symptoms occur and what food was eaten prior EER:? 60-70 g protein (.8-1g/kg), 21 g fiber Per GI pt was recc to do full liquid diet. Pt not tolerating most full liquid protein options (i.e smoothies, shakes, bone broth, pureed meats). Pt does seem to tolerate a soft diet with extra sauces and liquids to help food down. Will try to focus on eliminating rough foods or foods that congeal and monitor symptoms first on soft diet to provide the least restrictive diet as possible. Monitoring/Evaluations: diet recall, symptom journal. f/u 4 wks Electronically Signed by: Melissa Trujillo 07/18/24 15:24 Clinical Dietitian [address] [id number]
== END ==
PROVIDERS: PCP Internal Medicine; Referring Provider Internal Medicine
DX: K22.4 Dyskinesia of esophagus (principal); Z87.19 Personal history of other diseases of the digestive system; Z71.3 Dietary counseling and surveillance; Z68.24 Body mass index [BMI] 24.0-24.9, adult
CPT/HCPCS: 97802

== ENCOUNTER → 2024-08-28 12:58 | Outpatient (CLI) | payer OTHER, SELFPAY ==
[2023-04-05 08:48] VITALS: BMI 25.8
--- NOTE | 2024-08-29 11:31 | DIET.OUTPTC ---
Dietary Outpatient Consult Consult Date: 08/28/24 Assessment: 63 y F referred to dietitian for dyskinesis of esophagus. Pt w/ hx of achalasia per GI note. Pt reports improvement with symptoms, but still working to determine which foods cause regurgitation and which don't. Still having constipation daily. Added in a additional snack to help with small freq meals for better daily energy levels. Wants to learn more about incorporating an anti-inflammatory dietary pattern with diet modifications for achalasia. Diet Recall: B-cherrios and 1/4 c cows milk (tolerates this well, no symptoms) or 1/2 c oatmeal with raisins and a few tbsp of walnuts finely chopped Morning snack- half pb sandwich L-half cheese quesadilla Afternoon snack- feeling tired, difficult to get in, will try serving of crackers D-3 oz of chx or beef or pork -meat is diced up - or 1 egg. No seafood, salad (very small portions 1/2 cup can tolerate) or cooked veg (tolerates better), potatoes (very small portion 1/2 c or less) post dinner snack: Ice cream 2 cups black coffee Activity: walking and gardening beginning of day Weight is stable. Nutrition Diagnosis:? Food and nutrition related knowledge deficit r/t no formal nutrition educ on nutritional management with current condition aeb pt wanting to improve PO intakes but difficulty tolerating some foods Inadequate fiber intake d/t decreased tolerance for fiber filled foods aeb <20 g fiber per day Interventions:? Discussed and provided appropriate resources on the following: -Anti-inflammatory dietary patterns and incorporating into current dietary pattern -Brainstormed easier fiber sources -Assessed current diet recall Goals: -increase fiber serving with fruit smoothie for easy to eat snack in afternoon, can include flaxseed/chiaseeds EER:? 21 g fiber Monitoring/Evaluations:?f/u as needed Electronically Signed by: Melissa Trujillo Clinical Dietitian [address] [address]
== END ==
PROVIDERS: PCP Internal Medicine; Referring Provider Internal Medicine
DX: K22.4 Dyskinesia of esophagus (principal); Z87.19 Personal history of other diseases of the digestive system; Z71.3 Dietary counseling and surveillance
CPT/HCPCS: 97803

== ENCOUNTER → 2025-01-22 10:35 | Outpatient (CLI) | payer OTHER, SELFPAY ==
[2023-04-05 08:48] VITALS: BMI 25.8
[2025-01-22 11:07] LABS: Hematocrit 37.7 % (36-46); Hemoglobin 12.4 g/dL (12.0-16.0); Mean Corpuscular HGB Conc 32.8 % (30-36); Mean Corpuscular Hemoglobin 30.3 PG (26-34); Mean Corpuscular Volume 92.3 fL (80-100); Platelet Count 247 X10^3/uL (150-400)
[2025-01-22 11:26] LABS: Hemoglobin A1C% w Est Avg Glu 5.7 % (4.0-6.0)
[2025-01-22 11:36] LABS: Alanine Aminotransferase 14 IU/L (<35); Albumin 4.1 g/dL (3.5-5.0); Albumin Globulin Ratio 1.4 (1.0-2.8); Alkaline Phosphatase 53 U/L (38-126); Blood Urea Nitrogen 19 mg/dL (7-17); Calcium 9.4 mg/dL (8.4-10.2); Carbon Dioxide 27 mmol/L (22-32); Chloride 107 mmol/L (98-107); Estimated Glomerular Filt Rate 57 mL/min (>60); Globulin 2.9 g/dL (1.7-4.1); Glucose 104 mg/dL (70-99); HEMOLYSIS < 15 (0-50); Potassium 4.0 mmol/L (3.4-5.1); Sodium 141 mmol/L (137-145); Total Protein 7.0 g/dL (6.3-8.2)
[2025-01-22 12:27] LABS: Vitamin B12 819 pg/mL (239-931)
== END ==
PROVIDERS: PCP Internal Medicine; Referring Provider Internal Medicine; Visit Provider Internal Medicine
DX: D64.89 Other specified anemias (principal); E78.2 Mixed hyperlipidemia; E53.8 Deficiency of other specified B group vitamins
CPT/HCPCS: 36415; 80053; 82607; 83036; 85027

== ENCOUNTER → 2025-02-05 14:44 | Outpatient (CLI) | payer OTHER, SELFPAY ==
[2023-04-05 08:48] VITALS: BMI 25.8
--- NOTE | 2025-02-05 14:46 | DI.MG.S_ITS ---
MM screening mammo BI: 02/05/2025. BI-RADS: 0 CLINICAL: 64-year old female for bilateral screening mammogram. Tyrer-Cuzick lifetime risk of 3.0%. No personal or first-degree family history of breast cancer. PRIOR EXAMS 11/11/2023, 08/27/2022, 01/10/2020. MAMMOGRAPHY TECHNIQUE: 2D and 3D (tomosynthesis) digital mammographic views obtained, with additional images as needed for full coverage. Current study was also evaluated with a Computer Aided Detection (CAD) system. DENSITY B. There are scattered areas of fibroglandular density. MAMMOGRAPHY FINDINGS Right: Lower Outer Quadrant, Middle depth: Focal asymmetry needing additional imaging evaluation. Left: No suspicious mass, asymmetry, microcalcification, or other abnormality seen. IMPRESSION: Right (Asymmetry): Lower Outer Quadrant, Middle depth * Incomplete - focal asymmetry needing additional imaging evaluation. Left * No evidence of malignancy. RECOMMENDATIONS Right: Lower Outer Quadrant, Middle depth * Further evaluation with diagnostic mammography and diagnostic ultrasound. Ultrasound to be performed only if needed. OVERALL ASSESSMENT CATEGORY BI-RADS-0: Incomplete - Need Additional Imaging Evaluation. ELECTRONICALLY SIGNED: Priscilla Villeda M.D. on 02/12/2025 at 11:44:51 PM PT Interpreting Station ID: [id number]
== END ==
LOC: MAMMO 14:45
PROVIDERS: PCP Internal Medicine; Referring Provider Internal Medicine; Visit Provider Internal Medicine
DX: Z12.31 Encounter for screening mammogram for malignant neoplasm of breast (principal)
CPT/HCPCS: 77063; 77067